=== PATIENT | male | born 1935 | race Caucasian/White ===

== ENCOUNTER 2017-02-25 14:01 | Inpatient (IN) | payer BC, MEDICARE ==
[~2017-02-25] VITALS: Ht 188 cm; Wt 115.0 kg
[~2017-02-25 14:01] MED LIST: ATOR40TA49 PO; DOCU1CAP39 PO; FE G325T PO; FLOR250C PO; LORTA5 PO; METO50TA11 PO; NYST100024 TOP; POLY119S PO; PRAD75CA PO; PREV30CA36 PO; SENN187 PO; TERA10CA3; THIA50CA PO; TOLT4 PO; TOPI100 PO; VENL75 PO; VESI5TAB PO; VITA100018 PO
[2017-02-25 14:06] VITALS: BP 151/81; PULSE 70; RESP 20; TEMP 97.4; O2SAT 97
[2017-02-25] MEDS ORDERED: PIPERACIL-TAZO 3.375 GM PREMIX 50 ML IV ONE (14:30)
[2017-02-25] MEDS ORDERED: ATOR10TA15 PO (14:44)
[2017-02-25] MEDS ORDERED: FLUO40CA PO (14:44)
[2017-02-25] MEDS ORDERED: TOPI1TAB36 PO (14:44)
[2017-02-25] MEDS ORDERED: METO50TA11 PO (14:44)
[2017-02-25] MEDS ORDERED: BUPR150T3 PO (14:44)
[2017-02-25] MEDS ORDERED: MIRA50TA PO (14:44)
[2017-02-25] MEDS ORDERED: VITA100T54 PO (14:44)
[2017-02-25] MEDS ORDERED: CHOL1CAP8 PO (14:44)
[2017-02-25] MEDS ORDERED: PRAD75CA PO (14:44)
[2017-02-25] MEDS ORDERED: VANCOMYCIN INJ 1,000 MG in SODIUM CHLOR 0.9% 250 ML INJ 250 ML IV ONE (14:45)
[2017-02-25 14:57] VITALS: BP 149/84; PULSE 66; RESP 20; TEMP 97.8; O2SAT 95
[2017-02-25] MEDS ORDERED: SENNOSIDES 8.6 MG TAB PO PRN (15:00)
[2017-02-25] MEDS ORDERED: SODIUM CHLORIDE 0.9% FLUSH 10 ML FLUSH IV FLUSH PRN (15:00)
[2017-02-25] MEDS ORDERED: BISACODYL 10 MG SUPP RECTAL PRN (15:00)
[2017-02-25] MEDS ORDERED: MAGNESIUM HYDROXIDE SUSP 30 ML CUP PO PRN (15:00)
[2017-02-25] MEDS ORDERED: LACTULOSE SYRUP 20 GM/30 ML CUP PO PRN (15:00)
[2017-02-25] MEDS ORDERED: NALOXONE HCL 0.4 MG/ML AMP IV PRN (15:00)
--- NOTE | 2017-02-25 15:26 | HHI.HP ---
[facility] Primary [facility] Physician Jina Lozada MD Admission Diagnosis left foot osteomyelitis Diagnoses: Chief Complaint: non healing wound Left foot Travel History International Travel<30 Days: No Contact w/Intl Traveler <30 Da: No Traveled to Known Affected Are: No History of Present Illness Written by Sara Sesay, acting as scribe for Dr. Espinoza on 02/25/17 at 15 :18. 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 Patient presents to the ER reports he has had a open wound on the plantar aspect of his left foot since April 2016. Patient has been seen at a wound clinic in [facility] and [facility]. Patient felt that the wound had improved then seemed to reopen about 1 month ago. Patient lives partially in [place] and partially in [place]. Patient returned to [place] from [place] this past Friday. Patient went to [facility] today and was sent to the ER for possible osteomyelitis. Patient reports moderate sharp pain located plantar aspect left foot which is worse with weight bearing. Pain better with rest. No N/V/D/C, chset pain, shortness of breath, dizziness, fevers or chills. 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[facility], sleep apnea stopped no longer uses CPAP, GERD, BPH, hyperlipidemia Past Surgical History Bilateral knee replaced, bilateral shoulder orthoscopic surgery, repair of foot fracture with hardware placement, back surgery for stenosis 2000, appendectomy Reported Medications Vitamin D3 (Cholecalciferol) 400 Unit Cap 400 Units PO DAILY Vitamin B-1 (Thiamine HCl) 100 Mg Tab 100 Mg PO DAILY Myrbetriq (Mirabegron) 50 Mg Tab 50 Mg PO HS Topiramate 50 Mg Tab 100 Mg PO BID Pradaxa (Dabigatran) 75 Mg Cap 75 Mg PO BID Bupropion HCl ER 24 HR (Bupropion HCl) 150 Mg Tab 150 Mg PO DAILY Fluoxetine (Fluoxetine HCl) 40 Mg Cap 40 Cap PO DAILY Atorvastatin (Atorvastatin Calcium) 10 Mg Tab 10 Mg PO HS Metoprolol Succinate ER 24 HR (Metoprolol Succinate) 50 Mg Tab 50 Mg PO DAILY Allergies: Coded Allergies: Sulfa (Verified Allergy, Severe, Rash, 02/25/17) Active Ordered Medications Current Medications Medications (Trade) Dose Ordered Sig/Zoë Route Start Time Stop Time Status Last Admin Vancomycin HCl 1000 mg/Sodium Chloride 250 ml @ 250 mls/hr ONCE ONCE IV 02/25/17 14:45 02/25/17 15:44 (NS 1000 ml Inj) 1,000 ml @ 75 mls/hr [id number] IV 02/25/17 14:49 UNV (NS Flush) 2 ml UNSCH PRN IV FLUSH 02/25/17 15:00 UNV (NS Flush) 2 ml BID IV FLUSH 02/25/17 21:00 UNV (Narcan Inj) 0.4 mg UNSCH PRN IV 02/25/17 15:00 UNV (Milk Of Magnesia Liq) 30 ml Q12H PRN PO 02/25/17 15:00 UNV (Senokot) 17.2 mg Q12H PRN PO 02/25/17 15:00 UNV (Dulcolax Supp) 10 mg DAILY PRN RECTAL 02/25/17 15:00 UNV (Lactulose Liq) 30 ml DAILY PRN PO 02/25/17 15:00 UNV (Lipitor) 10 mg HS PO 02/25/17 21:00 UNV (PROzac) 40 mg DAILY PO 02/26/17 09:00 UNV (Toprol Xl) 50 mg DAILY PO 02/26/17 09:00 UNV (Vitamin B1) 100 mg DAILY PO 02/26/17 09:00 UNV (Topamax) 100 mg BID PO 02/25/17 21:00 UNV Non-Formulary Medication 50 mg HS PO 02/25/17 21:00 UNV Family History Mother CHF, first cardiac problem in her late 40's/early 50's Father secondary to lung CA secondary to tobacco use Brother secondary to cancer of the liver age 76 Social History Lives in both [place] and [place] Tobacco use: quit smoking at age 40 started smoking at age 16- at the most he smoked was 4 packs a day ETOH use: about 2-3 drinks per night- has skipped night without complications Illicit drug use: denies Physical Exam Vital Signs Vital Signs Date Time Temp Pulse Resp B/P Pulse Ox O2 Delivery O2 Flow Rate FiO2 02/25/17 14:06 97.4 70 20 151/81 97 Physical Exam GENERAL: This is a well-nourished, well-developed patient, in no apparent distress. SKIN: No rashes, ecchymoses or lesions. Cool and dry. non draining open wound plantar surface left foot HEAD: Atraumatic. Normocephalic. No temporal or scalp tenderness. EYES: Pupils equal round and reactive. Extraocular motions intact. No scleral icterus. No injection or drainage. CARDIOVASCULAR: Regular rate and rhythm without murmurs, gallops, or rubs. Posterior tibial pulse +2, absent pedal pulse bilaterally RESPIRATORY: Clear to auscultation. Breath sounds equal bilaterally. No wheezes , rales, or rhonchi. GASTROINTESTINAL: Abdomen soft, non-tender, nondistended. No guarding. MUSCULOSKELETAL: Extremities without clubbing, cyanosis, or edema. No joint tenderness, effusion, or edema noted. No calf tenderness. Negative Homans sign bilaterally. NEUROLOGICAL: Awake and alert. No focal deficits noted. Motor and sensory grossly within normal limits. Five out of 5 muscle strength in all muscle groups. Normal speech. 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 Patient presents to the ER reports he has had a open wound on the plantar aspect of his left foot since April 2016. Patient has been seen at a wound clinic in [facility] and [facility]. Patient felt that the wound had improved then seemed to reopen about 1 month ago. Patient lives partially in [place] and partially in [place]. Patient returned to [place] from [place] this past Friday. Patient went to [facility] today and was sent to the ER for possible osteomyelitis. Patient reports moderate sharp pain located plantar aspect left foot which is worse with weight bearing. Pain better with rest. Abscess with possible osteomyelitis left foot Consult ID Consult Podiatry CBC, BMP, C- reactive protein, and mag pending Zosyn and Vancomycin ordered in ER WBC Spect ceretec pending Wound culture pending AFib hx hold Pradaxa possible procedure Continue Metoprolol Other stable chronic medical conditions include HTN and hyperlipidemia continue home medications. DVT prophylaxis with SCDs Full Code Physician Certification 2 Midnight Certification Type: Admission for Inpatient Services Order for Inpatient Services The services are ordered in accordance with Medicare regulations or non- Medicare payer requirements, as applicable. In the case of services not specified as inpatient-only, they are appropriately provided as inpatient services in accordance with the 2-midnight benchmark. Estimated LOS (days): 3 days is the estimated time the patient will need to remain in the hospital, assuming treatment plan goals are met and no additional complications. Post-Hospital Plan: Not yet determined Notes: This note was transcribed by scribjodi [Sara Sesay]. I, Dr. Jair Espinoza personally performed the history, physical exam, and medical decision making; and confirmed the accuracy of the information in the transcribed note. Authenticated by Dr. Jair Espinoza on 02/25/17 at 23:57. Sara Sesay Feb 25, 2017 15:25 Jair Espinoza MD Feb 25, 2017 23:57
--- NOTE | 2017-02-25 15:35 | PD ---
HPI Chief Complaint: Skin Problem Time Seen by Provider: 15:31 Travel History International Travel<30 days: No Contact w/Intl Traveler<30days: No Traveled to known affect area: No History of Present Illness HPI 81-year-old male that presents to the ED for evaluation of possible osteomyelitis. Patient was seen by a border machine operator Dr. Reed today and was sent here by their for evaluation of possible as to malaise to the left foot. Patient complains of having this one since July and was taken care of by wound care at [facility] and he seemed to get better but he came back and she went to see her border machine operator today who did a evaluation and she recommended that he comes here for antibiotics. Patient denies any history of diabetes or immunosuppression. No other injuries reported. No fevers chills or sweats. He does have chronic neuropathy. Allergies to sulfa. No other medical issues. Minimal pain 3 out of 10. No other wounds reported. PFSH Past Medical History Hx Anticoagulant Therapy: Yes Arthritis: Yes (KNEES) Asthma: No Atrial Fibrillation: Yes Autoimmune Disease: No Blood Disorders: No Anxiety: Yes Depression: No Heart Rhythm Problems: No Cancer: No Cardiac Catheterization: Yes Cardiovascular Problems: Yes High Cholesterol: Yes Chest Pain: Yes Congestive Heart Failure: No COPD: No Diminished Hearing: No Endocrine: No Gastrointestinal Disorders: Yes GERD: No Glaucoma: No Genitourinary: No Hepatitis: No Hiatal Hernia: No Hypertension: Yes Immune Disorder: No Musculoskeletal: Yes Neurologic: No Psychiatric: Yes Reproductive: No Respiratory: Yes Myocardial Infarction: No Sleep Apnea: Yes Ulcer: No Influenza Vaccination: Yes Past Surgical History Abdominal Surgery: Yes (APPENDECTOMY) AICD: No Appendectomy: Yes Arteriovenous Shunt: No Cardiac Surgery: No Cholecystectomy: No Ear Surgery: No Endocrine Surgery: No Eye Surgery: No Genitourinary Surgery: No Insulin Pump: No Joint Replacement: Yes (KUMAR. KNEES) Oral Surgery: Yes (DENTAL IMPLANTS) Pacemaker: No Thoracic Surgery: No Family History Family Hypercholesterolemia: Yes Social History Alcohol Use: Yes (2-3 DRINKS LIQUOR DAILY ) Tobacco Use: No Substance Use: No Allergies-Medications (Allergen,Severity, Reaction): Coded Allergies: Sulfa (Verified Allergy, Severe, Rash, 02/25/17) Reported Meds & Prescriptions Reported Meds & Active Scripts Active Reported Vitamin D3 (Cholecalciferol) 400 Unit Cap 400 Units PO DAILY Vitamin B-1 (Thiamine HCl) 100 Mg Tab 100 Mg PO DAILY Myrbetriq (Mirabegron) 50 Mg Tab 50 Mg PO HS Topiramate 50 Mg Tab 100 Mg PO BID Pradaxa (Dabigatran) 75 Mg Cap 75 Mg PO BID Bupropion HCl ER 24 HR (Bupropion HCl) 150 Mg Tab 150 Mg PO DAILY Fluoxetine (Fluoxetine HCl) 40 Mg Cap 40 Cap PO DAILY Atorvastatin (Atorvastatin Calcium) 10 Mg Tab 10 Mg PO HS Metoprolol Succinate ER 24 HR (Metoprolol Succinate) 50 Mg Tab 50 Mg PO DAILY Review of Systems Except as stated in HPI: all other systems reviewed are Neg Physical Exam Narrative GENERAL: SKIN: Warm and dry. HEAD: Atraumatic. Normocephalic. EYES: Pupils equal and round. No scleral icterus. No injection or drainage. ENT: No nasal bleeding or discharge. Mucous membranes pink and moist. Tongue is midline. No uvula deviation. NECK: Trachea midline. No JVD. CARDIOVASCULAR: Regular rate and rhythm. No murmurs, S3, S4. RESPIRATORY: No accessory muscle use. Clear to auscultation. Breath sounds equal bilaterally. GASTROINTESTINAL: Abdomen soft, non-tender, nondistended. Hepatic and splenic margins not palpable. MUSCULOSKELETAL: Extremities without clubbing, cyanosis, or edema. No obvious deformities. Full range of motion of the upper and lower extremities bilaterally. 2+ pulses bilaterally. Patient has an open wound on the plantar aspect of the left foot which is about 1 cm in diameter. Some purulence noted. Some erythema and swelling noted. Slightly tender to touch. NEUROLOGICAL: Awake and alert. No obvious cranial nerve deficits. Motor grossly within normal limits. Five out of 5 muscle strength in the arms and legs. Normal speech. PSYCHIATRIC: Appropriate mood and affect; insight and judgment normal. Data Data Last Documented VS Vital Signs Date Time Temp Pulse Resp B/P Pulse Ox O2 Delivery O2 Flow Rate FiO2 02/25/17 14:06 97.4 70 20 151/81 97 Orders Complete Blood Count With Diff (02/25/17 14:21) Basic Metabolic Panel (Bmp) (02/25/17 14:21) C-Reactive Protein (Crp) (02/25/17 14:21) Magnesium (Mg) (02/25/17 14:21) Iv Access Insert/Monitor (02/25/17 14:21) Piperacil-Tazo 3.375 Gm Premix (Zosyn 3. (02/25/17 14:30) Wbc Spect Ceretec (02/25/17 ) Wound Culture And Gram Stain (02/25/17 14:39) Blood Culture (02/25/17 14:39) Vancomycin Inj (Vancomycin Inj) (02/25/17 14:45) Admit To Inpatient (02/25/17 ) Vital Signs (Adult) Q4H (02/25/17 14:49) Activity Oob With Assistance (02/25/17 14:49) Intake + Output MARC.QSHIFT (02/25/17 14:49) Diet Npo (02/25/17 Dinner) Sodium Chlor 0.9% 1000 Ml Inj (Ns 1000 M (02/25/17 14:49) Sodium Chloride 0.9% Flush (Ns Flush) (02/25/17 15:00) Sodium Chloride 0.9% Flush (Ns Flush) (02/25/17 21:00) Pt Request For Service (02/25/17 14:49) Case Management Consult (02/25/17 14:49) Scd Bilateral/Knee High MARC.BID (02/25/17 14:49) Naloxone Inj (Narcan Inj) (02/25/17 15:00) Magnesium Hydroxide Liq (Milk Of Magnesi (02/25/17 15:00) Sennosides (Senokot) (02/25/17 15:00) Bisacodyl Supp (Dulcolax Supp) (02/25/17 15:00) Lactulose Liq (Lactulose Liq) (02/25/17 15:00) Inpatient Certification (02/25/17 ) Atorvastatin (Lipitor) (02/25/17 21:00) Fluoxetine (Prozac) (02/26/17 09:00) Metoprolol Succinate Er (Toprol Xl) (02/26/17 09:00) Thiamine (Vit B1) (Vitamin B1) (02/26/17 09:00) Topiramate (Topamax) (02/25/17 21:00) (Nf) Mirabegron (Myrbetriq) (02/25/17 21:00) Consult Podiatry (02/25/17 ) Consult Infectious Disease (02/25/17 ) Admit Order (Ed Use Only) (02/25/17 15:03) MDM Medical Decision Making Medical Screen Exam Complete: Yes Emergency Medical Condition: Yes Medical Record Reviewed: Yes Differential Diagnosis wound infection versus osteomyelitis versus cellulitis Narrative Course 81-year-old male that presents to the ED for evaluation of possible osteomyelitis. Patient was properly examined and was found to have signs and symptoms consistent with appears to be without infection. Possible osteomyelitis. Labs and imaging ordered. Patient was sent here by Dr. Garvey on for evaluation of this an admission for a WBC scan as well as IV antibiotics. Case was discussed with Dr. Nolasco who is furnace mason for Dr Xavier who agrees to admit to medicine, IV vancomycin and consult ID. Cultures taken from wound and blood. Patient was started on vancomycin. Case was discussed with Dr. Espinoza who agrees to admission. Diagnosis Primary Impression: Osteomyelitis Qualified Code: M86.072 - Acute hematogenous osteomyelitis of left foot Admitting Information Admitting Physician Requests: Admit Christian Jacob Feb 25, 2017 15:35
[2017-02-25 16:05] LABS: AUTOMATED NEUTROPHIL # 2.9 TH/MM3 (1.8-7.7); BASOPHIL % 0.5 % (0.0-2.0); EOSINOPHIL # 0.3 TH/MM3 (0-0.4); EOSINOPHIL % 5.2 % (0.0-4.0); HEMATOCRIT 40.6 % (39.0-51.0); HEMO FLAGS DIFF FINAL; LYMPH % 22.3 % (9.0-44.0); LYMPHOCYTE # 1.1 TH/MM3 (1.0-4.8); MEAN CELL VOLUME 88.3 FL (80.0-100.0); MEAN CORPUSCULAR HEMOGLOBIN 30.2 PG (27.0-34.0); MEAN CORPUSCULAR HGB CONC 34.2 % (32.0-36.0); MONO % 13.1 % (0.0-8.0); NEUT % 58.9 % (16.0-70.0); PLATELET COUNT 155 TH/MM3 (150-450); RED CELL DISTRIBUTION WIDTH 15.9 % (11.6-17.2)
[2017-02-25 16:19] LABS: BICARBONATE 24.1 MEQ/L (21.0-32.0); MAGNESIUM 2.2 MG/DL (1.5-2.5); POTASSIUM 3.8 MEQ/L (3.5-5.1)
[2017-02-25] MEDS: SODIUM CHLOR 0.9% 1000 ML INJ 1,000 ML IV SCH (16:39)
[2017-02-25 16:45] VITALS: BP 139/76; PULSE 64; RESP 18; O2SAT 96
[2017-02-25] MEDS ORDERED: Vancomycin Consult Pharmacy 1 EA OTHER SCH (18:15)
[2017-02-25 20:28] VITALS: BP 168/68; PULSE 68; RESP 18; TEMP 97.8; O2SAT 95
[2017-02-25] MEDS ORDERED: PT:MYRBETRIQ 50 MG PO SCH (21:00)
[2017-02-25] MEDS: SODIUM CHLORIDE 0.9% FLUSH 10 ML FLUSH IV FLUSH SCH (21:00)
[2017-02-25] MEDS ORDERED: NON-FORMULARY DRUG (Mirabegron (Myrbetriq) 50 MG) PO SCH (21:00)
[2017-02-25] MEDS: TOPIRAMATE 100 MG TAB PO SCH (22:05)
[2017-02-25] MEDS: ATORVASTATIN 10 MG TAB PO SCH (22:05)
[2017-02-25] MEDS: PIPERACIL-TAZO 4.5 GM PREMIX 100 ML IV SCH (22:59)
[2017-02-25 23:50] VITALS: BP 152/82; PULSE 71; RESP 18; TEMP 97.7; O2SAT 95
[2017-02-26] MEDS: SODIUM CHLOR 0.9% 1000 ML INJ 1,000 ML IV SCH ×2 (04:36→17:48)
[2017-02-26] MEDS: PIPERACIL-TAZO 4.5 GM PREMIX 100 ML IV SCH ×2 (05:58→14:58)
[2017-02-26 08:00] VITALS: BP 142/81; PULSE 71; RESP 17; TEMP 97.5; O2SAT 94
--- NOTE | 2017-02-26 08:20 | MB ---
cc: LEESA DESAI MD, SONA D. DPM DATE OF CONSULTATION: 02/26/2017 1937 REASON FOR CONSULTATION Left foot cellulitis infection. HISTORY OF PRESENT ILLNESS The patient is a 81-year-old male who was seen by Dr. Xavier on 02/25/2014 at the [facility]. Presented with new onset redness, swelling and probing to the deep subcu tissues on the left foot. He returned to [place] recently and presented with symptoms. Denies any nausea, vomiting, fever, diarrhea, chills. REVIEW OF SYSTEMS Six point review of systems per HPI. PAST MEDICAL HISTORY 1. HTN. 2. Hyperlipidemia. 3. Atrial fibrillation. 4. Sleep apnea. 5. GERD. 6. BPH. PAST SURGICAL HISTORY 1. Bilateral knee replacements. 2. Bilateral shoulder surgery. 3. Left foot ORIF. 4. Back surgery 2000. 5. Appendectomy. MEDICATION Reported medications: 1. Vitamin D3. 2. B1. 3. Myrbetriq. 4. Topiramate. 5. Pradaxa. 6. Bupropion. 7. Fluoxetine. 8. Atorvastatin. 9. Metoprolol. FAMILY HISTORY Noncontributory. SOCIAL H[place]ORY [place] Past history of tobacco. ETOH: Two to three drinks per night. Illicit drugs: Denies all. PHYSICAL EXAMINATION Left foot without pain or tenderness. There is decrease in erythema and swelling to the left foot. There is no active drainage. Protective sensation grossly intact. No crepitus. Full range of motion. No pain on palpation. LABORATORY DATA WBC 5.0, RBC of 4.6, H&H 13.9 and 40.6, respectively. CRP 0.77. He is currently pending bone scan on the left foot. ASSESSMENT/PLAN 1. Left foot diabetic foot infection. 2. Continue local wound care, offloading with a cam boot. Plan for this patient is to get a bone scan to determine whether he has deeper bone infection. The patient has reiterated that he plans on no surgical intervention in [place] as he will be planning to leave [place] on 03/02/2017 to go to [place] for the summer. If the bone scan is negative, then plan to discharge him on oral antibiotics. Thank you for the kind consult. PALMIRA Juares /7:46 AM /7:55 AM
[2017-02-26] MEDS: SODIUM CHLORIDE 0.9% FLUSH 10 ML FLUSH IV FLUSH SCH ×2 (09:00→20:06)
[2017-02-26] MEDS: TOPIRAMATE 100 MG TAB PO SCH ×2 (09:48→20:04)
[2017-02-26] MEDS: FLUoxetine HCL 20 MG CAP PO SCH (09:48)
[2017-02-26] MEDS: METOPROLOL SUCCINATE 50 MG EXTENDED RELEASE TAB PO SCH (09:48)
[2017-02-26] MEDS: THIAMINE HCL 100 MG TAB PO SCH (09:48)
--- NOTE | 2017-02-26 10:56 | PD.CONS ---
History of Present Illness Service Infectious disease Consult Requested By Dr Sharri Espinoza Reason for Consult Evaluate patient for possible osteo-of the left foot Primary Care Physician Jina Lozada MD Diagnoses: History of Present Illness Patient seen and examined. Records reviewed. Patient is a 81-year-old male, presents to the hospital at the advice of his multifocal button inspector for further evaluation of his left foot. Patient apparently has had a sore over his first metatarsal on the left foot on the plantar aspect. He has callus there and he has been going to a wound care center in [place]. He has been worked up, and there was no evidence of infection, and has not been on any antibiotics. Over the last month he started having an open wound, and he started going to [facility]. He has been seen 2 times, and there was apparently no evidence of infection. Over the last 2 days his developed an area of redness on the medial aspect of that left foot. He was seen by the multifocal button inspector, and from there he was told to go to the hospital for further evaluation and treatment. Patient has not had any change in the color of the drainage. His always been clear. He has a little bit of pain when he puts weight on it. Denies any fever or chills or sweats. He has not had any respiratory complaint, GI or urinary complaints. Patient has not been on any oral antibiotics for his left foot. Since admission he has not been febrile. His WBC is normal. Patient just came from having a bone scan done. He is on IV Vanco and Zosyn. Infectious disease consultation has been requested to evaluate for possible osteomyelitis of the left foot. Review of Systems Constitutional: DENIES: Fever, Chills Eyes: DENIES: Eye pain Ears, nose, mouth, throat: DENIES: Nasal discharge, Oral lesions, Throat pain, Ear Pain, Sinus Pain Respiratory: DENIES: Cough, Sputum production, Shortness of breath Cardiovascular: DENIES: Chest pain, Palpitations, Syncope Gastrointestinal: DENIES: Abdominal pain, Diarrhea, Nausea, Vomiting, Difficulty Swallowing Genitourinary: DENIES: Dysuria Musculoskeletal: COMPLAINS OF: Joint pain, Back pain, DENIES: Joint Swelling Integumentary: DENIES: Rash Neurologic: DENIES: Headache Psychiatric: DENIES: Hallucinations Past Family Social History Allergies: Coded Allergies: Sulfa (Verified Allergy, Severe, Rash, 02/25/17) Past Medical History Hypertension Hyperlipidemia Atrial fibrillation Sleep apnea stopped no longer uses CPAP GERD BPH Hyperlipidemia Past Surgical History Bilateral knee replaced Bilateral shoulder arthoscopic surgery Repair of foot fracture with hardware placement Back surgery for stenosis 2001 Appendectomy Active Ordered Medications Lipitor Dulcolax Prozac Lactulose MOM Lopressor Zosyn Senokot Thiamine Detrol Topamax Vancomycin Family History Mother CHF, first cardiac problem in her late 40's/early 50's Father secondary to lung CA secondary to tobacco use Brother secondary to cancer of the liver age 76 Social History Lives in both [place] and [place] Tobacco use: quit smoking at age 40 started smoking at age 16- at the most he smoked was 4 packs a day ETOH use: about 2-3 drinks per night- has skipped night without complications Illicit drug use: denies Physical Exam Vital Signs Vital Signs Date Time Temp Pulse Resp B/P Pulse Ox O2 Delivery O2 Flow Rate FiO2 02/26/17 08:00 97.5 71 17 142/81 94 02/25/17 23:50 97.7 71 18 152/82 95 02/25/17 20:28 97.8 68 18 168/68 95 02/25/17 16:45 64 18 139/76 96 Room Air 02/25/17 14:57 97.8 66 20 149/84 95 02/25/17 14:06 97.4 70 20 151/81 97 Physical Exam GENERAL: Patient is a well-nourished, well-developed male, awake and alert, not in respiratory distress. SKIN: Warm and dry. No generalized rash, no ecchymoses and no evidence of embolic lesions. HEAD: Atraumatic. Normocephalic. No temporal wasting, or tenderness. EYES: [place] conjunctiva. No petechia or hemorrhage. Pupils equal, round and reactive to light. Extraocular movements full and intact. No scleral icterus. No injection or drainage. EARS, NOSE AND THROAT: Nose without bleeding or purulent nasal discharge. No sinus tenderness. Mucous membranes pink and moist. No oral lesions noted. No exudate. No oral thrush. NECK: Trachea midline. Supple and not tender, no meningeal signs CARDIOVASCULAR: Regular rate and rhythm. No murmurs, rubs or gallops heard RESPIRATORY: Clear to auscultation. Breath sounds equal bilaterally. No rales , wheezing or rhonchi ABDOMEN: Soft, non-tender, nondistended. Bowel sounds present and normoactive. No guarding. No rebound. No organomegaly. EXTREMITIES: No clubbing, cyanosis, or edema. Has scars both knees C/W surgical history. No calf tenderness. Well perfused and warm. L foot - there is a pea sized plantar ulcer over his first MT, clean base, no purulence, no odor. There is improving area of erythema on medial aspect of that foot. He has chronic skin changes on both legs worse on R than on L NEUROLOGICAL: Awake and alert. Cranial nerves grossly intact. Motor grossly within normal limits. PSYCHIATRIC: Normal affect, calm and cooperative. LINE: No evidence of infection Laboratory Laboratory Tests Test 02/25/17 15:00 White Blood Count 5.0 Red Blood Count 4.60 Hemoglobin 13.9 Hematocrit 40.6 Mean Corpuscular Volume 88.3 Mean Corpuscular Hemoglobin 30.2 Mean Corpuscular Hemoglobin 34.2 Concent Red Cell Distribution Width 15.9 Platelet Count 155 Mean Platelet Volume 8.1 Neutrophils (%) (Auto) 58.9 Lymphocytes (%) (Auto) 22.3 Monocytes (%) (Auto) 13.1 Eosinophils (%) (Auto) 5.2 Basophils (%) (Auto) 0.5 Neutrophils # (Auto) 2.9 Lymphocytes # (Auto) 1.1 Monocytes # (Auto) 0.7 Eosinophils # (Auto) 0.3 Basophils # (Auto) 0.0 CBC Comment DIFF FINAL Differential Comment Sodium Level 137 Potassium Level 3.8 Chloride Level 105 Carbon Dioxide Level 24.1 Anion Gap 8 Blood Urea Nitrogen 13 Creatinine 1.20 Estimat Glomerular Filtration 58 Rate Random Glucose 94 Calcium Level 9.0 Magnesium Level 2.2 C-Reactive Protein 0.77 Date/Time Procedure Status Source Growth 02/25/17 15:05 Aerobic Blood Culture Received Blood Peripheral Pending 02/25/17 15:05 Anaerobic Blood Culture Received Blood Peripheral Pending 02/25/17 14:45 Gram Stain - Final Resulted Wound Foot 02/25/17 14:45 Wound Culture Resulted Wound Foot Pending Result Diagram: 02/25/17 1500 02/25/17 1500 Imaging Assessment and Plan Assessment and Plan IMPRESSION Cellulitis L foot, has chronic plantar ulcer over first MTP - improving Chronic ulcer, ?osteo RECOMMENDATION Follow C/S Patient is schedule to go back to [place] Mar 02 - His L foot is improving, and one option would be to Rx with oral Abx and complete Rx of his cellulitis - have him reevaluated by his multifocal button inspector in [place], possibly do bone biopsy ( after he is off Abx for at least 1-2 weeks) for C/S if scan (+) and have Abx Rx for osteo based on results of C/S Monitor progress Change Zosyn to Levaquin Continue Vanco for now Adjust Abx based on C/S Follow results of bone scan I will follow along with you Thank you for this consultation Discussed Condition With Explained plan to patient and D/W Agata Sigala MD Feb 26, 2017 10:56
[2017-02-26 12:00] VITALS: BP 154/69; PULSE 63; RESP 16; TEMP 95.6; O2SAT 95
[2017-02-26] MEDS: VANCOMYCIN INJ 1,750 MG in SODIUM CHLORID 0.9% 500 ML INJ 500 ML IV SCH (13:05)
--- NOTE | 2017-02-26 13:49 | RADRPT ---
EXAM DATE/TIME: 02/25/2017 17:56 [place] COMPARISON: No previous studies available for comparison. INDICATIONS : Left plantar foot wound for eight months. DOSE: 21 mCi Tc99m Ceretec labeled white blood cells IV SPECT IMAGIN hrs, 20 hrs IMAGNG: SPECT/CT imaging with fusion was performed. RADIATION DOSE: 5.42 CTDIvol (mGy) ; Multiple Day Study MEDICAL HISTORY : Hypertension. Atrial fibrillation. SURGICAL HISTORY : Appendectomy. Total knee replacement, left. Total knee replacement, right. Left foot surgery. ENCOUNTER: Subsequent ACUITY: 7 - 11 months PAIN SCALE: 0/10 LOCATION: Left foot. TECHNIQUE: Following the in vitro labeling of autologous white cells and reinjection, whole body scan was perfor med at the specified times. SPECT imaging was performed at the specified time in sagittal, axial and coronal planes. Attenuation correction was performed with the computed tomography and both the atten uation correction and non-attenuation corrected data sets were reviewed. FINDINGS: There is intense radiotracer uptake scattered in the left leg most intense about the wound on the jennifer ntar axis aspect of the foot sitting just beneath the head of the first metatarsal. No other uptake is identified. The uptake is confined to the soft tissues. CONCLUSION: Uptake in the soft tissues outside of ulcer. This does not involve the bone. Jaylan Fuchs MD FACR on February 26, 2017 at 13:40 Board Certified Radiologist. This report was verified electronically.
[2017-02-26] MEDS: COLLAGENASE OINT 30 GM TUBE TOPICAL SCH (14:58)
[2017-02-26 16:00] VITALS: BP 157/81; PULSE 66; RESP 17; TEMP 96.3; O2SAT 97
[2017-02-26] MEDS: LEVOFLOXACIN 750 MG TAB PO SCH (17:47)
--- NOTE | 2017-02-26 19:10 | HHI.PR ---
Subjective Remarks Patient seen today around noon. Denies any chest pain or shortness of breath. Reports pain is under control. Positive bowel movement. Objective Vital Signs Date Time Temp Pulse Resp B/P Pulse Ox O2 Delivery O2 Flow Rate FiO2 02/26/17 16:00 96.3 66 17 157/81 97 02/26/17 12:00 95.6 63 16 154/69 95 02/26/17 08:00 97.5 71 17 142/81 94 02/25/17 23:50 97.7 71 18 152/82 95 02/25/17 20:28 97.8 68 18 168/68 95 I/O 02/25/17 02/25/17 02/25/17 02/26/17 02/26/17 02/26/17 07:00 15:00 23:00 07:00 15:00 23:00 Intake Total 480 ml 598 ml 960 ml 1044 ml Output Total 1000 ml Balance 480 ml -402 ml 960 ml 1044 ml Intake Oral 480 ml 960 ml IV Total 598 ml 1044 ml Output Urine Total 1000 ml # Voids 2 2 Result Diagram: 02/25/17 1500 02/25/17 1500 Objective Remarks GENERAL: patient sitting up in bed. Appears comfortable. Alert and oriented 3. SKIN: Warm and dry. HEAD: Normocephalic. EYES: No scleral icterus. No injection or drainage. NECK: Supple, trachea midline. No JVD or lymphadenopathy. CARDIOVASCULAR: Regular rate and rhythm without murmurs, gallops, or rubs. RESPIRATORY: Breath sounds equal bilaterally. No accessory muscle use. GASTROINTESTINAL: Abdomen soft, non-tender, nondistended. MUSCULOSKELETAL: No cyanosis, or edema. BACK: Nontender without obvious deformity. No CVA tenderness. A/P Assessment and Plan ====02/26/17======= //Left foot cellulitis. White blood cell scan with absence of osteomyelitis. Discussed with infectious disease. Infectious disease recommends following up cultures. 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 Patient presents to the ER reports he has had a open wound on the plantar aspect of his left foot since April 2016. Patient has been seen at a wound clinic in [facility] and [facility]. Patient felt that the wound had improved then seemed to reopen about 1 month ago. Patient lives partially in [place] and partially in [place]. Patient returned to [place] from [place] this past Friday. Patient went to [facility] today and was sent to the ER for possible osteomyelitis. Patient reports moderate sharp pain located plantar aspect left foot which is worse with weight bearing. Pain better with rest. Abscess with possible osteomyelitis left foot Consult ID Consult Podiatry CBC, BMP, C- reactive protein, and mag pending Zosyn and Vancomycin ordered in ER WBC Spect ceretec pending Wound culture still pending AFib hx hold Pradaxa possible procedure Continue Metoprolol Other stable chronic medical conditions include HTN and hyperlipidemia continue home medications. DVT prophylaxis with SCDs Discharge Planning cleared for discharge by podiatry.discharge when cleared by infectious disease. Jair Espinoza MD Feb 26, 2017 19:10
[2017-02-26] MEDS ORDERED: ACETAMINOPHEN 325 MG TAB PO PRN (19:15)
[2017-02-26] MEDS: ATORVASTATIN 10 MG TAB PO SCH (20:04)
[2017-02-26 20:30] VITALS: BP 145/69; PULSE 70; RESP 18; TEMP 95.2; O2SAT 98
[2017-02-26] MEDS ORDERED: TOLTERODINE TARTRATE 4 MG CAP LA PO SCH (21:00)
[2017-02-26 23:46] VITALS: BP 154/78; PULSE 68; RESP 18; TEMP 96.9; O2SAT 98
[2017-02-27 08:00] VITALS: BP 141/80; PULSE 69; RESP 16; TEMP 98.5; O2SAT 96
[2017-02-27] MEDS: VANCOMYCIN INJ 1,750 MG in SODIUM CHLORID 0.9% 500 ML INJ 500 ML IV SCH (09:22)
[2017-02-27] MEDS: FLUoxetine HCL 20 MG CAP PO SCH (09:22)
[2017-02-27] MEDS: THIAMINE HCL 100 MG TAB PO SCH (09:22)
[2017-02-27] MEDS: LEVOFLOXACIN 750 MG TAB PO SCH (09:22)
[2017-02-27] MEDS: METOPROLOL SUCCINATE 50 MG EXTENDED RELEASE TAB PO SCH (09:22)
[2017-02-27] MEDS: TOPIRAMATE 100 MG TAB PO SCH (09:22)
[2017-02-27] MEDS: COLLAGENASE OINT 30 GM TUBE TOPICAL SCH (09:25)
[2017-02-27] MEDS: SODIUM CHLORIDE 0.9% FLUSH 10 ML FLUSH IV FLUSH SCH (09:26)
[2017-02-27] MEDS ORDERED: LEVA750T9 PO (10:20)
[2017-02-27] MEDS ORDERED: CLIN1CAP6 PO (10:20)
[2017-02-27 12:00] VITALS: BP 127/60; PULSE 63; RESP 16; TEMP 97.6; O2SAT 96
--- NOTE | 2017-02-27 23:09 | HHI.DS ---
Discharge Summary Admission Date Feb 25, 2017 at 15:05 Discharge Date: Feb 27, 2017 Admitting Diagnosis left foot osteomyelitis (1) Foot ulcer ICD Code: L97.509 Procedures no invasive procedures. Brief History - From Admission Written by Sara Sesay, acting as scribe for Dr. Espinoza on 02/25/17 at 15 :18. 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 Patient presents to the ER reports he has had a open wound on the plantar aspect of his left foot since April 2016. Patient has been seen at a wound clinic in [facility] and [facility]. Patient felt that the wound had improved then seemed to reopen about 1 month ago. Patient lives partially in [place] and partially in [place]. Patient returned to [place] from [place] this past Friday. Patient went to [facility] today and was sent to the ER for possible osteomyelitis. Patient reports moderate sharp pain located plantar aspect left foot which is worse with weight bearing. Pain better with rest. No N/V/D/C, chset pain, shortness of breath, dizziness, fevers or chills. CBC/BMP: 02/25/17 1500 02/27/17 0615 Significant Findings Laboratory Tests Test 02/25/17 02/27/17 15:00 06:15 Monocytes (%) (Auto) 13.1 % (0.0-8.0) Eosinophils (%) (Auto) 5.2 % (0.0-4.0) Estimat Glomerular Filtration 58 ML/MIN (>89) 55 ML/MIN (>89) Rate C-Reactive Protein 0.77 MG/DL (0.00-0.30) Imaging Last Impressions Tumor Localization 02/25/17 0000 Signed Impressions: Service Date/Time: Saturday, February 25, 2017 17:56 - CONCLUSION: Uptake in the soft tissues outside of ulcer. This does not involve the bone. Jaylan Fuchs MD FACR PE at Discharge GENERAL: patient sitting up in bed. Appears comfortable. Alert and oriented 3. SKIN: Warm and dry. HEAD: Normocephalic. EYES: No scleral icterus. No injection or drainage. NECK: Supple, trachea midline. No JVD or lymphadenopathy. CARDIOVASCULAR: Regular rate and rhythm without murmurs, gallops, or rubs. RESPIRATORY: Breath sounds equal bilaterally. No accessory muscle use. GASTROINTESTINAL: Abdomen soft, non-tender, nondistended. MUSCULOSKELETAL: No cyanosis, or edema. BACK: Nontender without obvious deformity. No CVA tenderness. Hospital Course ====02/26/17======= //Left foot cellulitis. White blood cell scan with absence of osteomyelitis. Discussed with infectious disease. Infectious disease recommends following up cultures. 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 Patient presents to the ER reports he has had a open wound on the plantar aspect of his left foot since April 2016. Patient has been seen at a wound clinic in [facility] and [facility]. Patient felt that the wound had improved then seemed to reopen about 1 month ago. Patient lives partially in [place] and partially in [place]. Patient returned to [place] from [place] this past Friday. Patient went to [facility] today and was sent to the ER for possible osteomyelitis. Patient reports moderate sharp pain located plantar aspect left foot which is worse with weight bearing. Pain better with rest. Abscess with possible osteomyelitis left foot Consult ID Consult Podiatry CBC, BMP, C- reactive protein, and mag pending Zosyn and Vancomycin ordered in ER WBC Spect ceretec pending Wound culture still pending AFib hx hold Pradaxa possible procedure Continue Metoprolol Other stable chronic medical conditions include HTN and hyperlipidemia continue home medications. DVT prophylaxis with SCDs Discharge Planning cleared for discharge by podiatry.discharge when cleared by infectious disease. Pt Condition on Discharge: Good Discharge Disposition: Discharge Home Discharge Time: > 30 minutes Discharge Instructions DIET: Follow Instructions for: Heart Healthy Diet Activities you can perform: Partial Weight Bearing Follow up Referrals: PCP Follow-up - 1 Week Podiatry - 1 Week with Lyndsey Nolasco DPM New Medications: Clindamycin (Clindamycin) 300 Mg Cap 300 MG PO Q8H Infection Days 12 Ref 0 CAP Levofloxacin (Levaquin) 750 Mg Tablet 750 MG PO DAILY infection Days 12 TAB Continued Medications: Atorvastatin (Atorvastatin) 10 Mg Tab 10 MG PO HS Cholesterol Management #30 Ref 0 TAB Bupropion HCl ER 24 HR (Bupropion HCl ER 24 HR) 150 Mg Tab 150 MG PO DAILY Control Depression Ref 0 TAB Cholecalciferol (Vitamin D3) 400 Unit Cap 400 UNITS PO DAILY Nutritional Supplement #1 Ref 0 BOTTLE Dabigatran (Pradaxa) 75 Mg Cap 75 MG PO BID Blood Clot Prevention #60 Ref 0 CAP Fluoxetine (Fluoxetine) 40 Mg Cap 40 CAP PO DAILY #30 Ref 0 CAP Metoprolol Succinate ER 24 HR (Metoprolol Succinate ER 24 HR) 50 Mg Tab 50 MG PO DAILY #30 Ref 0 TAB Mirabegron (Myrbetriq) 50 Mg Tab 50 MG PO HS Urinary Symptom Managemen #30 Ref 0 TAB Thiamine (Vitamin B-1) 100 Mg Tab 100 MG PO DAILY Nutritional Supplement Ref 0 TAB Topiramate (Topiramate) 50 Mg Tab 100 MG PO BID Control Seizures #60 Ref 0 TAB Jair Espinoza MD Feb 27, 2017 23:09
[2017-02-28] MEDS ORDERED: PHARMACY ORDERED LAB ONE (01:45)
== END 2017-02-27 14:54 | disposition home or self-care (01) | DRG 540 ==
LOC: NEPC 14:01 → NEDA 15:05 → N07B 17:11
PROVIDERS: ADMIT Internal Medicine; ATTEND Internal Medicine
DX: M86.9 Osteomyelitis, unspecified (principal); L03.116 Cellulitis of left lower limb; E11.621 Type 2 diabetes mellitus with foot ulcer; I48.91 Unspecified atrial fibrillation; G62.9 Polyneuropathy, unspecified; L97.529 Non-pressure chronic ulcer of other part of left foot with unspecified severity; E78.5 Hyperlipidemia, unspecified; I10 Essential (primary) hypertension; F41.9 Anxiety disorder, unspecified; G47.30 Sleep apnea, unspecified; K21.9 Gastro-esophageal reflux disease without esophagitis; N40.0 Benign prostatic hyperplasia without lower urinary tract symptoms; Z87.891 Personal history of nicotine dependence; Z88.2 Allergy status to sulfonamides; Z96.653 Presence of artificial knee joint, bilateral; M19.90 Unspecified osteoarthritis, unspecified site
CPT/HCPCS: 78807; 78999; 80048; 82565; 83735; 85025; 86140; 87040; 87070; 87077; 87186; A9569; J2543; J3370; J7030; J7040; J7050; L2114

== ENCOUNTER 2018-07-30 20:29 | Inpatient (IN) ==
--- NOTE | 2018-07-30 21:09 | ED ---
HPI General Chief complaint: Extremity Injury, Lower Stated complaint: Transfer from [facility] Fall Injury Time Seen by Provider: 07/30/18 20:52 History of Present Illness HPI narrative: This is an 82-year-old male with history of atrial fibrillation on Eliquis, hypertension, hyperlipidemia, who was transferred here from [facility] in [place] for evaluation of a left leg injury. The patient reports that he fell yesterday at the [place] airport and injured his left leg. He then flew back to [place]. He was seen at [facility] today where x- rays of the left leg were obtained revealing comminuted periprosthetic fracture involving the mid and distal left tibial diaphysis and incomplete distal diaphysis of left fibula fracture. There is also an acute minimally displaced fracture at the medial aspect of the base of the fourth proximal phalanx with intra-articular involvement. The patient was placed in a long-leg splint and transferred here, accepted by hospitalist Dr. Rangel for orthopedic evaluation. The patient is complaining of mild pain and is requesting Tylenol. He denies any other injuries. Last meal 4 hours ago, last drink water 1.5 hours ago. No other complaints. 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 (Acute) Neuropathy (Acute) Spinal stenosis (Acute) Surgical History Surgical History H/O foot surgery (Acute) H/O knee surgery (Acute) H/O laminectomy (Acute) H/O rotator cuff surgery (Acute) Social History Social History Substance History: No History of Abuse Second Hand Smoke Exposure: No Smoking Status: Never smoker How Often Do You Have a Drink Containing Alcohol: 2 to 4 times a month Recent Travel in [facility] within the Last 8 Weeks: No Recent Out of Country Travel within the Last 8 Weeks: Yes Exam Narrative Exam Narrative: GENERAL: Well-developed well-nourished male in no acute distress SKIN: Warm and dry. HEAD: Atraumatic. Normocephalic. EYES: Pupils equal and round. No scleral icterus. No injection or drainage. ENT: No nasal bleeding or discharge. Mucous membranes pink and moist. NECK: Trachea midline. No JVD. CARDIOVASCULAR: Regular rate and rhythm. No murmur appreciated. RESPIRATORY: No accessory muscle use. Clear to auscultation. Breath sounds equal bilaterally. GASTROINTESTINAL: Abdomen soft, non-tender, nondistended. Hepatic and splenic margins not palpable. MUSCULOSKELETAL: No obvious deformities. Left long leg splint is in place. Toes are visible. There is a Band-Aid on the left fourth toe. NEUROLOGICAL: Awake and alert. No obvious cranial nerve deficits. Motor grossly within normal limits. Normal speech. Course Initial Documented Vital Signs Temperature 98 F 07/30/18 20:52 Pulse Rate 85 07/30/18 20:52 Respiratory Rate 18 07/30/18 20:52 Blood Pressure 195/91 H 07/30/18 20:52 Pulse Oximetry 98 07/30/18 20:52 Last Documented Vital Signs Temperature 98 F 07/30/18 20:52 Pulse Rate 85 07/30/18 20:52 Respiratory Rate 18 07/30/18 20:52 Blood Pressure 195/91 H 07/30/18 20:52 Pulse Oximetry 98 07/30/18 20:52 Medical Decision Making MDM Narrative Medical decision making narrative: X-ray imaging is suggestive of left tibia fracture as well as a potentially old fibula fracture. It was suggestive of a left fourth toe fracture as well however he has no tenderness to palpation of left fourth toe. I discussed with Facundo Childress PA-C on-call for Dr. Abrams, and they will consult, npo after midnight. Medical Screen Exam Complete: Yes Emergency Medical Condition: Yes Differential Diagnosis Differential Diagnosis: Left tibia-fibula fracture, dislocation, contusion Lab Data Result diagrams: 07/30/18 21:35 07/30/18 21:35 Lab Results 07/30/18 07/30/18 Range/Units 21:35 21:35 WBC 5.7 (4.0-11.0) th/mm3 RBC 3.94 L (4.50-5.90) mil/mm3 Hgb 13.0 (13.0-17.0) gm/dL Hct 38.6 L (39.0-51.0) % MCV 98.0 (80.0-100.0) fL MCH 33.0 (27.0-34.0) pg MCHC 33.7 (32.0-36.0) % RDW 14.0 (11.6-17.2) % Plt Count 140 L (150-450) th/mm3 MPV 7.3 (7.0-11.0) fL Neut % (Auto) 68.0 (16.0-70.0) % Lymph % (Auto) 14.8 (9.0-44.0) % [place] % (Auto) 13.3 H (0.0-8.0) % Eos % (Auto) 3.6 (0.0-4.0) % Baso % (Auto) 0.3 (0.0-2.0) % Neut # (Auto) 3.9 (1.8-7.7) th/mm3 Lymph # (Auto) 0.9 L (1.0-4.8) th/mm3 [place] # (Auto) 0.8 (0.0-0.9) th/mm3 Eos # (Auto) 0.2 (0.0-0.4) th/mm3 Baso # (Auto) 0.0 (0.0-0.2) th/mm3 WBC Differential . Differential Comment Auto diff final PT 10.7 (9.8-11.6) sec INR 1.1 Ratio APTT 37.1 H (23.4-31.7) sec Imaging Data Radiologist's impression: Chest X-Ray 07/30/18 21:02 CONCLUSION: 1. Minimal airspace disease at the left lung base, presumably atelectasis. Cannot exclude developing pneumonia in the appropriate clinical setting. Discharge Plan Discharge Disposition Patient Disposition: ED Admit(ED Internal Use Only) Discharge Condition Condition: Stable Discharge Order Discharge Orders: ED Use Only Admit Order (Routine); Ordered 07/30/18 Ordered By: Robinson Marcum Discharge Details Diagnosis: Closed fracture of left lower leg Physicians Team ED Provider: Rita Kennedy ED Midlevel Provider: Robinson Marcum Rxs /Orders / Referrals /Forms Prescriptions: No Action Eliquis RF: 0 Status ED Status: With Doctor
--- NOTE | 2018-07-30 21:24 | XR ---
EXAM DATE: 07/30/2018 9:21 PM EST AGE/SEX: 82 years / Male INDICATIONS: Cough. CLINICAL DATA: This is the patient's initial encounter. Patient reports that signs and symptoms have been present for 1 day and indicates a pain score of 0/10. MEDICAL/SURGICAL HISTORY: . Hypertension. Atrial fibrillation. . Appendectomy. Total knee repl acement, left. Total knee replacement, right. Left foot surgery. COMPARISON: No prior exams available for comparison. FINDINGS: Calcified granuloma at the right lung base. Minimal airspace disease at the left lung base. Cardiomed iastinal contours are within normal limits given portable technique. Bony thorax is grossly intact. CONCLUSION: 1. Minimal airspace disease at the left lung base, presumably atelectasis. Cannot exclude developing pneumonia in the appropriate clinical setting. Electronically signed by: David Min MD Board Certified Radiologist 07/30/2018 9:23 PM EST
[2018-07-30] MEDS ORDERED: Acetaminophen 325 MG Tablet PO ONE (21:41)
[2018-07-30 21:45] LABS: Baso % (Auto) 0.3 % (0.0-2.0); Eos # (Auto) 0.2 th/mm3 (0.0-0.4); Eos % (Auto) 3.6 % (0.0-4.0); Hematocrit 38.6 % (39.0-51.0); Lymph # (Auto) 0.9 th/mm3 (1.0-4.8); Lymph % (Auto) 14.8 % (9.0-44.0); Mean Corpuscular HGB Conc 33.7 % (32.0-36.0); Mean Platelet Volume 7.3 fL (7.0-11.0); Mono # (Auto) 0.8 th/mm3 (0.0-0.9); Mono % (Auto) 13.3 % (0.0-8.0); Neut # (Auto) 3.9 th/mm3 (1.8-7.7); Platelet Count 140 th/mm3 (150-450); Red Blood Count 3.94 mil/mm3 (4.50-5.90); White Blood Count 5.7 th/mm3 (4.0-11.0)
[2018-07-30 21:55] LABS: Activated Partial Thrombo Time 37.1 sec (23.4-31.7); INR 1.1 Ratio; Prothrombin Time 10.7 sec (9.8-11.6)
[2018-07-30 22:04] LABS: Alanine Aminotransferase 26 U/L (12-78)
[2018-07-30 22:06] LABS: Alkaline Phosphatase 71 U/L (45-117)
[2018-07-30 22:13] LABS: Albumin 3.4 g/dL (3.4-5.0); Anion Gap 5 meq/L (5-15); Aspartate Aminotransferase 35 U/L (15-37); Blood Urea Nitrogen 14 mg/dL (7-18); Calcium 8.6 mg/dL (8.5-10.1); Chloride 103 meq/L (98-107); Glomerular Filtration Rate 66 mL/min (>89); Glucose,Random 97 mg/dL (74-106); Sodium 132 meq/L (136-145)
[2018-07-30 22:15] LABS: Potassium 4.9 meq/L (3.5-5.1)
[2018-07-31] MEDS ORDERED: Bisacodyl 10 MG Supp RECTAL PRN (06:49)
[2018-07-31] MEDS ORDERED: Acetaminophen 325 MG Tablet PO PRN ×2 (06:49→06:52)
[2018-07-31] MEDS ORDERED: Morphine Sulfate Inj 2 MG/ML Vial IV.PUSH PRN (06:52)
[2018-07-31] MEDS ORDERED: HYDROmorphone PF Inj 1 MG/ML Ampul IV.PUSH PRN (06:52)
[2018-07-31] MEDS ORDERED: Naloxone Inj 0.4 MG/ML Vial IV.PUSH PRN (06:52)
[2018-07-31] MEDS ORDERED: HYDROmorphone PF Inj 0.5 MG/0.5 ML Syringe IV.PUSH PRN (07:10)
--- NOTE | 2018-07-31 07:40 | P.CONOP ---
[facility] Orthopedics Consult Note - [facility] Consult date: 07/31/18 Chief complaint: Left Tibia Fracture Narrative: Mr. Olvera is an 82-year-old male. He has a history of atrial fibrillation and is on Eliquis. He also has hypertension and high cholesterol. He was at the [facility] yesterday when he fell. He injured his left leg. He was able to get on the next flight home by using a wheelchair. He arrived to [place] and went to [facility]. X-rays revealed a comminuted left tibial shaft fracture below a revision total knee arthroplasty. He complains of left leg pain. Pain is severe and intense with movement or weightbearing. He was placed into a long-leg splint. He was transferred to [place] for definitive treatment. He is currently awake and alert. He lives in [place] and [place]. His knee replacements were done in [facility]. Review of Systems Patient denies fevers, chills, weight loss, headache, visual changes, hearing loss, chest pain, palpitations, shortness of breath, nausea, vomiting, no urinary changes, diarrhea, bowel changes, neck pain, back pain, skin rashes, weakness of extremities, easy bleeding, enlarged lymph nodes, numbness of extremities, anxiety, or depression. He complains of left leg pain Patient's social history, past medical history, and family history were reviewed on chart and with patient. 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 Neuropathy Spinal stenosis - Surgical History Surgical History: Surgical History (Last Reviewed 07/31/18 @ 07:36 by Vish Modi MD) H/O foot surgery H/O knee surgery H/O laminectomy H/O rotator cuff surgery - Family History Family History: Family History (Last Updated 07/31/18 @ 07:37 by Vish Modi MD) Other Family history non-contributory - Social History I have reviewed the patient's Social History: Yes - Tobacco History Second Hand Smoke Exposure: No Tobacco Use In Past 30 Days: No Smoking Status: Former smoker Tobacco Type: Cigarettes - Alcohol History How Often Do You Have a Drink Containing Alcohol: 2 to 4 times a month - Substance Use History Substance History: No History of Abuse - Travel History Recent Travel in the USA Within the Last 8 Weeks: No Recent Travel Out of the Country Within the Last 8 Weeks: Yes - Immunization History Tetanus Immunization: <5 Years Hx Influenza Vaccine This Season: Yes Medications and Allergies Active Medications: Active Medications Acetaminophen (Tylenol) 650 mg PO Q4H PRN PRN Reason: Temp > 100.4 Hydrocodone Bitart/Acetaminophen (Beulah 5/325) 1 tab PO Q4H PRN PRN Reason: pain 3-6 Hydrocodone Bitart/Acetaminophen (Beulah 7.5/325) 1 tab PO Q4H PRN PRN Reason: pain 7-10 Al Hydroxide/Mg Hydroxide (Milk Of Magnesia Liq) 30 ml PO Q12H PRN PRN Reason: Mild Constipation Bisacodyl (Dulcolax Supp) 10 mg RECTAL DAILY PRN PRN Reason: SEVERE CONSITIPATION Hydromorphone HCl (Dilaudid Pf Inj) 0.5 mg IV.PUSH Q3H PRN PRN Reason: BREAKTHROUGH PAIN Lactulose (Lactulose Liq) 30 ml PO DAILY PRN PRN Reason: SEVERE CONSITIPATION Metoprolol Succinate (Toprol Xl) 50 mg PO DAILY ANNAMARIA Naloxone HCl (Narcan Inj) 0.4 mg IV.PUSH UNSCH PRN PRN Reason: SEE LABEL COMMENTS Ondansetron HCl (Zofran Inj) 4 mg IV.PUSH Q6H PRN PRN Reason: NAUSEA OR VOMITING Ondansetron HCl (Zofran Inj) 4 mg IV.PUSH Q6H PRN PRN Reason: NAUSEA OR VOMITING Sennosides (Senokot) 17.2 mg PO Q12H PRN PRN Reason: Moderate Constipation Sodium Chloride (Ns Flush) 2 ml IV.FLUSH BID ANNAMARIA Sodium Chloride (Ns Flush) 2 ml IV.FLUSH PRN PRN PRN Reason: FLUSH AFTER USING IV ACCESS Sodium Chloride (Ns Flush) 2 ml IV.FLUSH BID ANNAMARIA Sodium Chloride (Ns Flush) 2 ml IV.FLUSH PRN PRN PRN Reason: FLUSH AFTER USING IV ACCESS Allergies Allergy/AdvReac Type Severity Reaction Status Date / Time Sulfa (Sulfonamide Allergy Severe Rash Verified 07/30/18 20:58 Antibiotics) Home Medications Medication Instructions Recorded Confirmed Type apixaban [Eliquis] 2.5 mg PO BID 07/30/18 07/31/18 History atorvastatin 10 mg PO DAILY 07/30/18 07/30/18 History bupropion HCl 300 mg PO QAM 07/30/18 07/30/18 History fluoxetine 40 mg PO DAILY 07/30/18 07/30/18 History metoprolol succinate 50 mg PO DAILY 07/30/18 07/30/18 History mirabegron [Myrbetriq] 50 mg PO DAILY 07/30/18 07/30/18 History ranitidine HCl [Zantac Maximum 150 mg PO DAILY 07/30/18 07/30/18 History Strength] topiramate 100 mg PO HS 07/30/18 07/30/18 History Exam Vital signs: Vital Signs 07/30/18 20:52 07/30/18 20:58 07/30/18 22:35 Temperature 98 F Pulse Rate 85 80 Respiratory Rate 18 18 18 Blood Pressure 195/91 H 145/70 H Pulse Oximetry 98 99 07/31/18 00:00 07/31/18 04:00 Temperature 97.6 F 97.3 F L Pulse Rate 75 77 Respiratory Rate 19 Blood Pressure 132/70 133/69 Pulse Oximetry 96 93 L Intake & Output 07/30/18 07/31/18 07/31/18 18:59 06:59 18:59 Intake Total 0 / 0 Output Total 250 / 250 Balance -250 / -250 Weight 119.8 kg Intake: Oral 0 / 0 Output: Urine 250 / 250 Other: Date of Last Bowel Movement 07/30/18 Weight On Admission 119.7 kg Narrative: Maxx is a pleasant 82-year-old male. His is at bedside. General: Awake and alert. No acute distress. Appears well-developed well- nourished Head: Normocephalic, atraumatic pupils are equal Neck: Soft, nontender, trachea midline Abdomen: Soft, nondistended Examination of right arm reveals no pain or deformity with shoulder, elbow, or wrist motion. Skin is intact. Radial pulse is palpable. Normal capillary refill in fingers. Sensation is intact in radial, ulnar, and median nerve distributions. Business Banking Officer strength is +5. No lymphadenopathy noted. Examination of left arm reveals no pain or deformity with shoulder, elbow, or wrist motion. Skin is intact. Radial pulse is palpable. Normal capillary refill in fingers. Sensation is intact in radial, ulnar, and median nerve distributions. Business Banking Officer strength is +5. No lymphadenopathy noted. Examination of left lower extremity reveals no tenderness around his hip or knee. He is tender to palpation along the mid and distal tibia. He has moderate swelling of the calf and ankle. He has minimal pain with passive range of motion of his toes. Skin is intact, but he has significant bruising. Sensation is intact in left foot. Dorsalis pedis pulse is palpable. Normal capillary refill and feet. Thigh and calf compartments are soft. No lymphadenopathy noted. Examination of right lower extremity reveals no pain or deformity with hip, knee , or ankle motion. Skin is intact. Sensation is intact in right foot. Dorsalis pedis pulse is palpable. Normal capillary refill and feet. Thigh and calf compartments are soft. No lymphadenopathy noted. +5 strength of ankle dorsiflexion and plantarflexion. Results - Labs Result Diagrams: 07/30/18 21:35 07/30/18 21:35 Labs: Laboratory Results - last 24 hr 07/30/18 07/30/18 07/30/18 21:35 21:35 21:35 WBC 5.7 RBC 3.94 L Hgb 13.0 Hct 38.6 L MCV 98.0 MCH 33.0 MCHC 33.7 RDW 14.0 Plt Count 140 L MPV 7.3 Neut % (Auto) 68.0 Lymph % (Auto) 14.8 Mccracken % (Auto) 13.3 H Eos % (Auto) 3.6 Baso % (Auto) 0.3 Neut # (Auto) 3.9 Lymph # (Auto) 0.9 L Mccracken # (Auto) 0.8 Eos # (Auto) 0.2 Baso # (Auto) 0.0 WBC Differential . Differential Comment Auto diff final PT 10.7 INR 1.1 APTT 37.1 H Sodium 132 L Potassium 4.9 Chloride 103 Carbon Dioxide 24.0 Anion Gap 5 BUN 14 Creatinine 1.08 Estimated GFR 66 L Random Glucose 97 Calcium 8.6 Total Bilirubin 0.6 AST 35 ALT 26 Alkaline Phosphatase 71 Total Protein 7.0 Albumin 3.4 Blood Type Blood Type Recheck Antibody Screen 07/30/18 23:54 WBC RBC Hgb Hct MCV MCH MCHC RDW Plt Count MPV Neut % (Auto) Lymph % (Auto) Mccracken % (Auto) Eos % (Auto) Baso % (Auto) Neut # (Auto) Lymph # (Auto) Mccracken # (Auto) Eos # (Auto) Baso # (Auto) WBC Differential Differential Comment PT INR APTT Sodium Potassium Chloride Carbon Dioxide Anion Gap BUN Creatinine Estimated GFR Random Glucose Calcium Total Bilirubin AST ALT Alkaline Phosphatase Total Protein Albumin Blood Type A Positive Blood Type Recheck Required Antibody Screen Negative - Diagnostic results Imaging: Impressions Chest X-Ray 07/30/18 21:02 CONCLUSION: 1. Minimal airspace disease at the left lung base, presumably atelectasis. Cannot exclude developing pneumonia in the appropriate clinical setting. Assessment and Plan - Assessment and Plan Maxx has a comminuted left tibia shaft fracture below a revision total knee arthroplasty. He has moderate swelling of his calf and ankle. Treatment options were discussed with patient. At this point he has too much swelling to proceed with open reduction internal fixation. I discussed with him possible external fixation. Overall the fracture is very well aligned. I will place him into a well-padded long-leg splint. He will need to keep his foot elevated at all times. He will need to remain strictly nonweightbearing. He may resume his Eliquis. He will need to be discharged to a [facility] facility. He may eventually need open reduction internal fixation of his tibia once the swelling has improved. He should follow-up with me in clinic next week for reevaluation of his soft tissue as well as x-rays of his tibia. He is in agreement with this plan. All questions were answered. SCDs, DARIAN mckee, Eliquis Strict nonweightbearing, elevate left foot [employer] for new left leg splint Follow-up with Dr. Modi in 1 weeks Case management for SNF A mid-level provider in my office (nurse practitioner or physician inventory control assistant) may see this patient on follow-up visits and continue to implement the objectives of this plan including: Starting or adjusting medications, injections , cast application, orthotics, brace application, physical therapy, radiological studies (including x-ray, MRI, CT, ultrasound, bone scan), vascular studies, neurologic studies, specialist consultation, and proceeding with surgical management, as appropriate.
[2018-07-31] MEDS: FLUoxetine 20 MG Capsule PO SCH (11:59)
[2018-07-31] MEDS: buPROPion 150 MG 12 HR Tablet PO SCH ×2 (11:59→22:23)
[2018-07-31] MEDS: Famotidine 20 MG Tablet PO SCH ×2 (12:00→22:23)
[2018-07-31] MEDS ORDERED: Aluminum/Magnesium/Simethacone Susp 30 ML UDC PO PRN (12:02)
[2018-07-31] MEDS ORDERED: Temazepam 15 MG Capsule PO PRN (12:02)
--- NOTE | 2018-07-31 12:02 | P.HPIM ---
History of Present Illness Service: [facility] Primary Care Physician: Jina Sandy MD Chief Complaint: INJURY TO LEFT LOWER EXTREMITY History of Present Illness: Patient is an 82-year-old gentleman with a history of atrial fibrillation on chronic Eliquis, hypertension, hyperlipidemia, who was transferred here from [facility] for evaluation of left leg injury. The patient reported that he fell yesterday at the [place] airport and injured his left leg. He then flew back to [place]. He was seen at [facility] yesterday where x-rays of the left leg were obtained revealing comminuted periprostatic fracture involving the mid and distal left tibial diaphysis and incomplete distal diaphysis of left fibula fracture. Patient was also noted to have an acute minimally displaced fracture at the medial aspect of the base of the fourth proximal phalanx and intra-articular involvement. Patient was placed in a long-leg splint and transferred here. For orthopedic evaluation. Patient has been seen by orthopedic surgery. Who wants the patient to go to SNF and wait for swelling to come down. Patient therefore will be admitted will stay here is needed to 3 midnights and continue pain control with limited mobility and then will be reevaluated by orthopedic surgery next week for possible surgery in the future of the left lower extremity Of note patient has had history with bilateral total knee replacements needing them both removed and then antibiotic spacers and then bilateral total knees redone. Patient will be admitted for pain control and to work with physical therapy and occupational therapy and then will need to go to SNF if surgery is not indicated at this time yet Family history significant for mother with congestive heart failure at 84 and father with lung cancer at age 78 Inpatient Certification: I certify that the inpatient services were ordered in accordance with Medicare regulations governing the order. This includes certification that hospital inpatient services are reasonable and necessary and in the case of services not specified as inpatient-only under 42 CFR 419.22(n), that they are appropriately provided as inpatient services in accordance to with the 2-midnight benchmark under 43 CFR 412.3(e) Estimated Total Length of Stay (Days): 3 Plans for Post Hospital Care: Not yet determined Review of Systems All other systems reviewed negative except as stated in HPI [facility] - History History Provided By: Patient - Medical History Medical History: Medical History (Last Updated 07/31/18 @ 11:50 by Jaylan Rockwell DO) Afib HTN (hypertension) High cholesterol 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 Neuropathy Spinal stenosis - Surgical History Surgical History: Surgical History (Last Reviewed 07/31/18 @ 11:50 by Jaylan Rockwell DO) H/O foot surgery H/O knee surgery H/O laminectomy H/O rotator cuff surgery - Family History Family History: Family History (Last Updated 07/31/18 @ 11:51 by Jaylan Rockwell DO) Other Congestive heart failure Family history non-contributory Lung cancer - Social History I have reviewed the patient's Social History: Yes - Tobacco History Second Hand Smoke Exposure: No Tobacco Use In Past 30 Days: No Smoking Status: Former smoker Tobacco Type: Cigarettes - Alcohol History How Often Do You Have a Drink Containing Alcohol: 2 to 4 times a month - Substance Use History Substance History: No History of Abuse - Travel History History of Recent Travel: Yes Recent Travel in the USA Within the Last 8 Weeks: No Recent Travel Out of the Country Within the Last 8 Weeks: Yes - Immunization History Tetanus Immunization: <5 Years Hx Influenza Vaccine This Season: Yes Medications and Allergies Active Medications: Active Medications Acetaminophen (Tylenol) 650 mg PO Q4H PRN PRN Reason: Temp > 100.4 Hydrocodone Bitart/Acetaminophen (Hunt 5/325) 1 tab PO Q4H PRN PRN Reason: pain 3-6 Hydrocodone Bitart/Acetaminophen (Hunt 7.5/325) 1 tab PO Q4H PRN PRN Reason: pain 7-10 Last Admin: 07/31/18 07:37 Dose: 1 tab Al Hydroxide/Mg Hydroxide (Milk Of Yoni Liq) 30 ml PO Q12H PRN PRN Reason: Mild Constipation Apixaban (Eliquis) 2.5 mg PO BID ANNAMARIA Atorvastatin Calcium (Lipitor) 10 mg PO DAILY ANNAMARIA Bisacodyl (Dulcolax Supp) 10 mg RECTAL DAILY PRN PRN Reason: SEVERE CONSITIPATION Bupropion HCl (Wellbutrin Sr) 150 mg PO Q12HR ANNAMARIA Famotidine (Pepcid) 20 mg PO BID ANNAMARIA Fluoxetine HCl (Prozac) 40 mg PO DAILY ANNAMARIA Hydromorphone HCl (Dilaudid Pf Inj) 0.5 mg IV.PUSH Q3H PRN PRN Reason: BREAKTHROUGH PAIN Last Admin: 07/31/18 10:32 Dose: 0.5 mg Lactulose (Lactulose Liq) 30 ml PO DAILY PRN PRN Reason: SEVERE CONSITIPATION Metoprolol Succinate (Toprol Xl) 50 mg PO DAILY [facility] Last Admin: 07/31/18 09:45 Dose: 50 mg Naloxone HCl (Narcan Inj) 0.4 mg IV.PUSH UNSCH PRN PRN Reason: SEE LABEL COMMENTS Ondansetron HCl (Zofran Inj) 4 mg IV.PUSH Q6H PRN PRN Reason: NAUSEA OR VOMITING Sennosides (Senokot) 17.2 mg PO Q12H PRN PRN Reason: Moderate Constipation Sodium Chloride (Ns Flush) 2 ml IV.FLUSH BID [facility] Last Admin: 07/31/18 09:46 Dose: Not Given Sodium Chloride (Ns Flush) 2 ml IV.FLUSH PRN PRN PRN Reason: FLUSH AFTER USING IV ACCESS Tolterodine Tartrate (Detrol La) 4 mg PO DAILY [facility] Topiramate (Topamax) 100 mg PO [facility] Allergies Allergy/AdvReac Type Severity Reaction Status Date / Time Sulfa (Sulfonamide Allergy Severe Rash Verified 07/30/18 20:58 Antibiotics) Home Medications Medication Instructions Recorded Confirmed Type apixaban [Eliquis] 2.5 mg PO BID 07/30/18 07/31/18 History atorvastatin 10 mg PO DAILY 07/30/18 07/30/18 History bupropion HCl 300 mg PO QA 07/30/18 07/30/18 History fluoxetine 40 mg PO DAILY 07/30/18 07/30/18 History metoprolol succinate 50 mg PO DAILY 07/30/18 07/30/18 History mirabegron [Myrbetriq] 50 mg PO DAILY 07/30/18 07/30/18 History ranitidine HCl [Zantac Maximum 150 mg PO DAILY 07/30/18 07/30/18 History Strength] topiramate 100 mg PO HS 07/30/18 07/30/18 History Exam Vital signs: Vital Signs 07/30/18 20:52 07/30/18 20:58 07/30/18 22:35 Temperature 98 F Pulse Rate 85 80 Respiratory Rate 18 18 18 Blood Pressure 195/91 H 145/70 H Pulse Oximetry 98 99 07/31/18 00:00 07/31/18 04:00 07/31/18 08:00 Temperature 97.6 F 97.3 F L 98.8 F Pulse Rate 75 77 76 Respiratory Rate 19 19 16 Blood Pressure 132/70 133/69 128/60 Pulse Oximetry 96 93 L 92 L Intake & Output 07/30/18 07/31/18 07/31/18 18:59 06:59 18:59 Intake Total 0 / 0 Output Total 250 / 250 Balance -250 / -250 Weight 119.8 kg Intake: Oral 0 / 0 Output: Urine 250 / 250 Other: Date of Last Bowel Movement 07/30/18 Weight On Admission 119.7 kg Narrative: GENERAL: Awake alert and oriented x3 talkative and cooperative SKIN: Warm and dry. Has some swelling to the left lower extremity HEAD: Atraumatic. Normocephalic. EYES: Pupils equal and round. No scleral icterus. No injection or drainage. EOMI ENT: No nasal bleeding or discharge. Mucous membranes pink and moist. Tongue is midline NECK: Trachea midline. No JVD. Supple CARDIOVASCULAR: IRRegular rate and rhythm. S1-S2 no S3 or S4 RESPIRATORY: No accessory muscle use. Clear to auscultation. Breath sounds equal bilaterally. GASTROINTESTINAL: Abdomen soft, non-tender, nondistended. Hepatic and splenic margins not palpable. MUSCULOSKELETAL: Extremities without clubbing, cyanosis, or edema. No obvious deformities. Left lower extremity is in splint NEUROLOGICAL: Awake and alert. No obvious cranial nerve deficits. Motor grossly within normal limits. Five out of 5 muscle strength in the arms and legs. Normal speech. Left lower extremity is in splint with the swelling and some tenderness PSYCHIATRIC: Appropriate mood and affect; insight and judgment normal. Results - Labs CBC & Chem 7: 07/30/18 21:35 07/30/18 21:35 Labs: Short CBC 07/30/18 Range/Units 21:35 WBC 5.7 (4.0-11.0) th/mm3 Hgb 13.0 (13.0-17.0) gm/dL Hct 38.6 L (39.0-51.0) % Plt Count 140 L (150-450) th/mm3 BMP 07/30/18 21:35 Sodium 132 L Potassium 4.9 Chloride 103 Carbon Dioxide 24.0 BUN 14 Creatinine 1.08 Calcium 8.6 Liver Function 07/30/18 Range/Units 21:35 Total Bilirubin 0.6 (0.2-1.0) mg/dL AST 35 (15-37) U/L ALT 26 (12-78) U/L Alkaline Phosphatase 71 (45-117) U/L Albumin 3.4 (3.4-5.0) g/dL - Imaging Impressions Chest X-Ray 07/30/18 21:02 CONCLUSION: 1. Minimal airspace disease at the left lung base, presumably atelectasis. Cannot exclude developing pneumonia in the appropriate clinical setting. Caprini VTE Risk Assessment Caprini VTE Risk Assessment: Moderate/High Risk (score >= 2) Caprini Risk Assessment Model: Point Value = 1 Point Value = 2 Point Value = 3 Point Value = 5 Age 41-60 Minor surgery BMI > 25 kg/m2 Swollen legs Varicose veins or History of unexplained or recurrent spontaneous Oral contraceptives or hormone replacement Sepsis (< 1 month) Serious lung disease, including pneumonia (< 1 month) Abnormal pulmonary function Acute myocardial infarction Congestive heart failure (< 1 month) History of inflammatory bowel disease Medical patient at bed rest Age 61-74 Arthroscopic surgery Major open surgery (> 45 min) Laparoscopic surgery (> 45 min) Malignancy Confined to bed (> 72 hours) Immobilizing plaster cast Central venous access Age >= 75 History of VTE Family history of VTE Factor V Leiden Prothrombin [id number] Lupus anticoagulant Anticardiolipin antibodies Elevated serum homocysteine Heparin-induced thrombocytopenia Other congenital or acquired thrombophilia Stroke (< 1 month) Elective arthroplasty Hip, pelvis, or leg fracture Acute spinal cord injury (< 1 month) Prophylaxis Regimen: Total Risk Factor Score Risk Level Prophylaxis Regimen 0-1 Low Early ambulation 2 Moderate Order ONE of the following: *Sequential Compression Device (SCD) *Heparin 5000 units SQ BID 3-4 Higher Order ONE of the following medications: *Heparin 5000 units SQ TID *Enoxaparin/Lovenox 40 mg SQ daily (WT < 150 kg, CrCl > 30 mL/min) *Enoxaparin/Lovenox 30 mg SQ daily (WT < 150 kg, CrCl > 10-29 mL/min) *Enoxaparin/Lovenox 30 mg SQ BID (WT < 150 kg, CrCl > 30 mL/min) AND/OR *Sequential Compression Device (SCD) 5 or more Highest Order ONE of the following medications: *Heparin 5000 units SQ TID (Preferred with Epidurals) *Enoxaparin/Lovenox 40 mg SQ daily (WT < 150 kg, CrCl > 30 mL/min) *Enoxaparin/Lovenox 30 mg SQ daily (WT < 150 kg, CrCl > 10-29 mL/min) *Enoxaparin/Lovenox 30 mg SQ BID (WT < 150 kg, CrCl > 30 mL/min) AND *Sequential Compression Device (SCD) Assessment and Plan - Plan Closed fracture of left lower leg comminuted periprosthetic fracture involving the mid and distal left tibial diaphysis and incomplete distal diaphysis of left fibula fracture -Nonsurgical at this time per orthopedics -May need surgery in the future -Continue on splint and pain control -Has been seen by orthopedic surgery no surgery at this time will need SNF Atrial fibrillation continue on Eliquis continue on metoprolol Hypertension resume home medications continue on metoprolol Hyperlipidemia continue on statin continue on atorvastatin Chronic neuropathy continue on home medications continue on Topamax Depression anxiety continue on fluoxetine and bupropion History of bilateral knee infections removal of the bilateral total knees and antibiotic spacer placement and then reimplantation of bilateral total knees GI prophylaxis continue on ranitidine DVT prophylaxis continue on Eliquis Will need SNF placement after his 3 midnights and pain control Code Status: Full code Discussed Condition With: RN and patient and family Discharge Planning: Pending SNF placement and pain control since no surgery at this time and surgery in the future H&P: Quality - VTE Deep Vein Thrombosis/Pulmonary Embolism Present on Admission: No
[2018-07-31] MEDS: Tolterodine Tartrate LA 4 MG Capsule PO SCH (13:35)
[2018-07-31] MEDS: Senna/Docusate Sodium 8.6/50 MG Tablet PO PRN (13:40)
--- NOTE | 2018-07-31 14:18 | ECG ---
Date Performed: 07/30/2018 Time Performed: 23:51:34 PTAGE: 82 years EKG: Sinus rhythm WITH FIRST DEGREE AV BLOCK RIGHT BUNDLE BRANCH BLOCK, new compared to prior tracing ABNORMAL ECG PREVIOUS TRACING : 06/08/2007 06.46 DOCTOR: Michael Coy Interpretating Date/Time 07/31/2018 14:17:29
[2018-07-31] MEDS: Topiramate 100 MG Tablet PO SCH (22:24)
[2018-08-01 06:45] LABS: Baso % (Auto) 0.2 % (0.0-2.0); Eos # (Auto) 0.3 th/mm3 (0.0-0.4); Eos % (Auto) 4.8 % (0.0-4.0); Hematocrit 37.7 % (39.0-51.0); Hemoglobin 12.7 gm/dL (13.0-17.0); Lymph # (Auto) 0.9 th/mm3 (1.0-4.8); Lymph % (Auto) 16.9 % (9.0-44.0); Mean Corpuscular HGB Conc 33.7 % (32.0-36.0); Mean Corpuscular Hemoglobin 33.5 pg (27.0-34.0); Mean Corpuscular Volume 99.4 fL (80.0-100.0); Mean Platelet Volume 7.1 fL (7.0-11.0); Mono # (Auto) 0.8 th/mm3 (0.0-0.9); Mono % (Auto) 14.9 % (0.0-8.0); Neut # (Auto) 3.3 th/mm3 (1.8-7.7); Neut % (Auto) 63.2 % (16.0-70.0); Platelet Count 140 th/mm3 (150-450); Red Blood Count 3.79 mil/mm3 (4.50-5.90); Red Cell Distribution Width 14.2 % (11.6-17.2); White Blood Count 5.3 th/mm3 (4.0-11.0)
[2018-08-01 07:09] LABS: Albumin 3.2 g/dL (3.4-5.0); Anion Gap 5 meq/L (5-15); Aspartate Aminotransferase 19 U/L (15-37); Blood Urea Nitrogen 16 mg/dL (7-18); Calcium 8.5 mg/dL (8.5-10.1); Carbon Dioxide 27.3 meq/L (21.0-32.0); Chloride 104 meq/L (98-107); Glomerular Filtration Rate 56 mL/min (>89); Glucose,Random 98 mg/dL (74-106); Magnesium 2.1 mg/dL (1.5-2.5); Sodium 136 meq/L (136-145)
[2018-08-01 07:10] LABS: Alanine Aminotransferase 19 U/L (12-78); Cholesterol 140 mg/dL (120-200); Phosphorus 3.7 mg/dL (2.5-4.9); Triglycerides 140 mg/dL (42-150)
[2018-08-01 07:18] LABS: Alkaline Phosphatase 64 U/L (45-117); Chol/HDL Ratio 2.71 Ratio; Free T4 (Free Thyroxine) 0.96 ng/dL (0.76-1.46); HDL Cholesterol 51.5 mg/dL (40.0-60.0); LDL Cholesterol,Calculated 61 mg/dL (0-99); Total Protein 6.9 g/dL (6.4-8.2)
--- NOTE | 2018-08-01 08:54 | P.PNOP ---
Subjective Interval history: Non op treatment of left tibial shaft, comminuted fracture inferior to revision total knee components. Pt admits his pain is well controlled and the long leg splint is comfortable. Pt and both are interested going to inpatient rehab which I think would be appropriate Physical Exam Vital signs: Vital Signs 07/31/18 12:00 07/31/18 16:00 07/31/18 20:12 Temperature 98.3 F 97.7 F 98.6 F Pulse Rate 66 73 70 Respiratory Rate 16 20 18 Blood Pressure 107/54 L 108/51 L 140/65 Pulse Oximetry 95 94 L 95 07/31/18 23:46 08/01/18 03:40 Temperature 97.9 F 97.7 F Pulse Rate 72 73 Respiratory Rate 18 18 Blood Pressure 134/66 127/61 Pulse Oximetry 97 96 Intake & Output 07/31/18 08/01/18 08/01/18 18:59 06:59 18:59 Output Total 1125 / 1125 Balance -1125 / -1125 Output: Urine 1125 / 1125 Other: Date of Last Bowel Movement 07/30/18 Narrative: LLE: in long leg splint, goes about 4 inches past knee joint proximally, free motion of distal digits, good cap refill, able to perform SLR with no movement of knee joint, NVI Results - Labs CBC & Chem 7: 08/01/18 06:02 08/01/18 06:02 Laboratory Results - last 24 hr 08/01/18 08/01/18 06:02 06:02 WBC 5.3 RBC 3.79 L Hgb 12.7 L Hct 37.7 L MCV 99.4 MCH 33.5 MCHC 33.7 RDW 14.2 Plt Count 140 L MPV 7.1 Neut % (Auto) 63.2 Lymph % (Auto) 16.9 [place] % (Auto) 14.9 H Eos % (Auto) 4.8 H Baso % (Auto) 0.2 Neut # (Auto) 3.3 Lymph # (Auto) 0.9 L [place] # (Auto) 0.8 Eos # (Auto) 0.3 Baso # (Auto) 0.0 WBC Differential . Differential Comment Auto diff final Sodium 136 Potassium 4.0 D Chloride 104 Carbon Dioxide 27.3 Anion Gap 5 BUN 16 Creatinine 1.24 Estimated GFR 56 L Random Glucose 98 Calcium 8.5 Phosphorus 3.7 Magnesium 2.1 Total Bilirubin 0.4 AST 19 ALT 19 Alkaline Phosphatase 64 Total Protein 6.9 Albumin 3.2 L Triglycerides 140 Cholesterol 140 LDL Cholesterol, Calc 61 HDL Cholesterol 51.5 Cholesterol/HDL Ratio 2.71 TSH 2.100 Free T4 0.96 Assessment and Plan - Assessment and Plan Non op treatment of left tibial shaft, comminuted fracture inferior to revision total knee components. Dr Abrams SCDs, Stanton Acosta Strict nonweightbearing, elevate left foot Follow-up with Dr. Abrams in 1 weeks Case management for Rehab vs SNF, recommend inpatient rehab if possible d/t large size and medical comorbidities. Clear for discharge from an orthopedic standpoint.
[2018-08-01] MEDS: Famotidine 20 MG Tablet PO SCH ×2 (09:16→21:33)
[2018-08-01] MEDS: Tolterodine Tartrate LA 4 MG Capsule PO SCH (09:16)
[2018-08-01] MEDS: Senna/Docusate Sodium 8.6/50 MG Tablet PO PRN (09:16)
[2018-08-01] MEDS: Docusate Sodium 100 MG Capsule PO PRN (09:16)
[2018-08-01] MEDS: buPROPion 150 MG 12 HR Tablet PO SCH ×2 (09:16→21:32)
[2018-08-01] MEDS: FLUoxetine 20 MG Capsule PO SCH (09:16)
--- NOTE | 2018-08-01 11:43 | P.PNIM ---
Subjective Interval history: Chief Complaint: INJURY TO LEFT LOWER EXTREMITY History of Present Illness: Patient is an 82-year-old gentleman with a history of atrial fibrillation on chronic Eliquis, hypertension, hyperlipidemia, who was transferred here from [facility] for evaluation of left leg injury. The patient reported that he fell yesterday at the [place] airport and injured his left leg. He then flew back to [place]. He was seen at [facility] yesterday where x-rays of the left leg were obtained revealing comminuted periprostatic fracture involving the mid and distal left tibial diaphysis and incomplete distal diaphysis of left fibula fracture. Patient was also noted to have an acute minimally displaced fracture at the medial aspect of the base of the fourth proximal phalanx and intra-articular involvement. Patient was placed in a long-leg splint and transferred here. For orthopedic evaluation. Patient has been seen by orthopedic surgery. Who wants the patient to go to SNF and wait for swelling to come down. Patient therefore will be admitted will stay here is needed to 3 midnights and continue pain control with limited mobility and then will be reevaluated by orthopedic surgery next week for possible surgery in the future of the left lower extremity Of note patient has had history with bilateral total knee replacements needing them both removed and then antibiotic spacers and then bilateral total knees redone. Patient will be admitted for pain control and to work with physical therapy and occupational therapy and then will need to go to SNF if surgery is not indicated at this time yet Family history significant for mother with congestive heart failure at 84 and father with lung cancer at age 78 1-5 NEEDS TO WORK WITH PT AND OT WILL NEED CM FOR HELP WITH SAFE DISCHARGE WILL PROBABLY NEED SNF PAIN CONTROL WITH [facility]CO LIMITED ACTIVITY REGARDING LEFT LOWER EXTREMITY Physical Exam Vital signs: Vital Signs 07/31/18 12:00 07/31/18 16:00 07/31/18 20:12 Temperature 98.3 F 97.7 F 98.6 F Pulse Rate 66 73 70 Respiratory Rate 16 20 18 Blood Pressure 107/54 L 108/51 L 140/65 Pulse Oximetry 95 94 L 95 07/31/18 23:46 08/01/18 03:40 08/01/18 09:12 Temperature 97.9 F 97.7 F 97.2 F L Pulse Rate 72 73 71 Respiratory Rate 18 18 18 Blood Pressure 134/66 127/61 120/59 L Pulse Oximetry 97 96 95 Intake & Output 07/31/18 08/01/18 08/01/18 18:59 06:59 18:59 Output Total 1125 / 1125 Balance -1125 / -1125 Output: Urine 1125 / 1125 Other: Date of Last Bowel Movement 07/30/18 07/29/17 Narrative: GENERAL: Awake alert and oriented x3 talkative and cooperative SKIN: Warm and dry. Has some swelling to the left lower extremity HEAD: Atraumatic. Normocephalic. EYES: Pupils equal and round. No scleral icterus. No injection or drainage. EOMI ENT: No nasal bleeding or discharge. Mucous membranes pink and moist. Tongue is midline NECK: Trachea midline. No JVD. Supple CARDIOVASCULAR: IRRegular rate and rhythm. S1-S2 no S3 or S4 RESPIRATORY: No accessory muscle use. Clear to auscultation. Breath sounds equal bilaterally. GASTROINTESTINAL: Abdomen soft, non-tender, nondistended. Hepatic and splenic margins not palpable. MUSCULOSKELETAL: Extremities without clubbing, cyanosis, or edema. No obvious deformities. Left lower extremity is in splint NEUROLOGICAL: Awake and alert. No obvious cranial nerve deficits. Motor grossly within normal limits. Five out of 5 muscle strength in the arms and legs. Normal speech. Left lower extremity is in splint with the swelling and some tenderness PSYCHIATRIC: Appropriate mood and affect; insight and judgment normal. Results - Labs CBC & Chem 7: 08/01/18 06:02 08/01/18 06:02 Laboratory Results - last 24 hr 08/01/18 08/01/18 06:02 06:02 WBC 5.3 RBC 3.79 L Hgb 12.7 L Hct 37.7 L MCV 99.4 MCH 33.5 MCHC 33.7 RDW 14.2 Plt Count 140 L MPV 7.1 Neut % (Auto) 63.2 Lymph % (Auto) 16.9 [place] % (Auto) 14.9 H Eos % (Auto) 4.8 H Baso % (Auto) 0.2 Neut # (Auto) 3.3 Lymph # (Auto) 0.9 L [place] # (Auto) 0.8 Eos # (Auto) 0.3 Baso # (Auto) 0.0 WBC Differential . Differential Comment Auto diff final Sodium 136 Potassium 4.0 D Chloride 104 Carbon Dioxide 27.3 Anion Gap 5 BUN 16 Creatinine 1.24 Estimated GFR 56 L Random Glucose 98 Calcium 8.5 Phosphorus 3.7 Magnesium 2.1 Total Bilirubin 0.4 AST 19 ALT 19 Alkaline Phosphatase 64 Total Protein 6.9 Albumin 3.2 L Triglycerides 140 Cholesterol 140 LDL Cholesterol, Calc 61 HDL Cholesterol 51.5 Cholesterol/HDL Ratio 2.71 TSH 2.100 Free T4 0.96 - Imaging ITS Impressions Chest X-Ray 07/30/18 21:02 CONCLUSION: 1. Minimal airspace disease at the left lung base, presumably atelectasis. Cannot exclude developing pneumonia in the appropriate clinical setting. Assessment and Plan - Plan Closed fracture of left lower leg comminuted periprosthetic fracture involving the mid and distal left tibial diaphysis and incomplete distal diaphysis of left fibula fracture -Nonsurgical at this time per orthopedics -May need surgery in the future -Continue on splint and pain control -Has been seen by orthopedic surgery no surgery at this time will need SNF Atrial fibrillation continue on Eliquis continue on metoprolol Hypertension resume home medications continue on metoprolol Hyperlipidemia continue on statin continue on atorvastatin Chronic neuropathy continue on home medications continue on Topamax Depression anxiety continue on fluoxetine and bupropion History of bilateral knee infections removal of the bilateral total knees and antibiotic spacer placement and then reimplantation of bilateral total knees GI prophylaxis continue on ranitidine DVT prophylaxis continue on Eliquis Will need SNF placement after his 3 midnights and pain control Code Status: FULL CODE Discussed Condition With: RN AND PT Discharge Planning: Pending SNF placement and pain control since no surgery at this time and surgery in the future
[2018-08-01 12:41] LABS: Hemoglobin A1c 5.1 % (4.3-6.0)
[2018-08-01] MEDS: Topiramate 100 MG Tablet PO SCH (21:32)
[2018-08-02] MEDS: Docusate Sodium 100 MG Capsule PO PRN (07:45)
[2018-08-02] MEDS: Famotidine 20 MG Tablet PO SCH ×3 (07:46→20:45)
[2018-08-02] MEDS: Senna/Docusate Sodium 8.6/50 MG Tablet PO PRN (07:46)
[2018-08-02] MEDS: FLUoxetine 20 MG Capsule PO SCH ×2 (07:47→10:05)
[2018-08-02] MEDS: buPROPion 150 MG 12 HR Tablet PO SCH ×3 (07:47→20:45)
[2018-08-02] MEDS: Tolterodine Tartrate LA 4 MG Capsule PO SCH ×2 (07:47→10:05)
--- NOTE | 2018-08-02 11:02 | P.PNIM ---
Subjective Interval history: In bed appears in not acute distress watching TV. Awaiting for [facility]dc facility approval. Says pain is controlled by medications. No chest pain or palpitations. No nausea or vomiting. No diarrhea. With constipation. Physical Exam Vital signs: Last Vital Signs Temp 97.7 F 08/02/18 08:00 Pulse 69 08/02/18 08:00 Resp 18 08/02/18 08:00 BP 143/68 H 08/02/18 08:00 Pulse Ox 96 08/02/18 08:00 Intake & Output 07/31/18 08/01/18 08/02/18 08/03/18 06:59 06:59 06:59 06:59 Intake Total 0 / 0 1500 / 1500 Output Total 250 / 250 1125 / 1125 1525 / 1525 Balance -250 / -250 -1125 / -1125 -25 / -25 Weight 119.8 kg Narrative: GENERAL: Awake alert and oriented x3 talkative and cooperative. CARDIOVASCULAR: Irregular rate and rhythm. S1-S2 no S3 or S4 RESPIRATORY: No accessory muscle use. Clear to auscultation. Breath sounds equal bilaterally. GASTROINTESTINAL: Abdomen soft, non-tender, nondistended. Hepatic and splenic margins not palpable. MUSCULOSKELETAL: Extremities without clubbing, cyanosis, or edema. No obvious deformities. Left lower extremity is in splint NEUROLOGICAL: Awake and alert. No obvious cranial nerve deficits. Motor grossly within normal limits. Normal speech. Left lower extremity is in splint with the swelling and some tenderness Results Labs CBC & Chem 7: 08/01/18 06:02 08/01/18 06:02 Assessment and Plan Plan Closed fracture of left lower leg comminuted periprosthetic fracture involving the mid and distal left tibial diaphysis and incomplete distal diaphysis of left fibula fracture -Nonsurgical at this time per orthopedics -May need surgery in the future -Continue on splint and pain control -Has been seen by orthopedic surgery no surgery at this time will need SNF Atrial fibrillation continue on Eliquis continue on metoprolol Hypertension resume home medications continue on metoprolol Hyperlipidemia continue on statin continue on atorvastatin Chronic neuropathy continue on home medications continue on Topamax Depression anxiety continue on fluoxetine and bupropion History of bilateral knee infections removal of the bilateral total knees and antibiotic spacer placement and then reimplantation of bilateral total knees GI prophylaxis continue on ranitidine DVT prophylaxis continue on Eliquis Will need SNF placement after his 3 midnights and pain control Constipation. Bowel regimen Code Status: FULL CODE Discussed Condition With: RN AND PT Discharge Planning: Pending SNF placement and pain control since no surgery at this time and surgery in the future Progress Note: Quality VTE Deep Vein Thrombosis/Pulmonary Embolism Present on Admission: No
[2018-08-02] MEDS ORDERED: Sod Phosphate/Sod Biphosphate (Adult) Enema 133 ML Bottle RECTAL PRN (17:29)
--- NOTE | 2018-08-02 17:29 | P.DS ---
DS: Providers Date of admission: 07/30/18 21:52 Primary care physician: Jina Sandy MD Consults: 07/31/18 06:54 Consult to Orthopedic Surgery Routine Consulting Provider: Vish Abrams Reason for Consultation: Tib fib fracture Notified:: Service Spoke with:: Lorene Date Notified:: 07/31/18 Time Notified:: 07:28 Ordering Provider: LULY 07/31/18 06:55 Consult to Orthopedic Surgery Routine Consulting Provider: Vish Abrams Reason for Consultation: left tib fib fx - Dr Abrams - transfer accepted by him Spoke with:: duplicate, added to list already Date Notified:: 07/31/18 Time Notified:: 07:32 Ordering Provider: PHIL Brief History from admission: Patient is an 82-year-old gentleman with a history of atrial fibrillation on chronic Eliquis, hypertension, hyperlipidemia, who was transferred here from [facility] for evaluation of left leg injury. The patient reported that he fell yesterday at the [place] airport and injured his left leg. He then flew back to [place]. He was seen at [facility] yesterday where x-rays of the left leg were obtained revealing comminuted periprostatic fracture involving the mid and distal left tibial diaphysis and incomplete distal diaphysis of left fibula fracture. Patient was also noted to have an acute minimally displaced fracture at the medial aspect of the base of the fourth proximal phalanx and intra-articular involvement. Patient was placed in a long-leg splint and transferred here. For orthopedic evaluation. Patient has been seen by orthopedic surgery. Who wants the patient to go to SNF and wait for swelling to come down. Patient therefore will be admitted will stay here is needed to 3 midnights and continue pain control with limited mobility and then will be reevaluated by orthopedic surgery next week for possible surgery in the future of the left lower extremity Of note patient has had history with bilateral total knee replacements needing them both removed and then antibiotic spacers and then bilateral total knees redone. Patient will be admitted for pain control and to work with physical therapy and occupational therapy and then will need to go to SNF if surgery is not indicated at this time yet Family history significant for mother with congestive heart failure at 84 and father with lung cancer at age 78 DS: Summary Closed fracture of left lower leg comminuted periprosthetic fracture involving the mid and distal left tibial diaphysis and incomplete distal diaphysis of left fibula fracture -Nonsurgical at this time per orthopedics -May need surgery in the future -Continue on splint and pain control -Has been seen by orthopedic surgery no surgery at this time will need SNF Atrial fibrillation continue on Eliquis continue on metoprolol Hypertension resume home medications continue on metoprolol Hyperlipidemia continue on statin continue on atorvastatin Chronic neuropathy continue on home medications continue on Topamax Depression anxiety continue on fluoxetine and bupropion History of bilateral knee infections removal of the bilateral total knees and antibiotic spacer placement and then reimplantation of bilateral total knees GI prophylaxis continue on ranitidine DVT prophylaxis continue on Eliquis Will need SNF placement after his 3 midnights and pain control Constipation. Bowel regimen Code Status: FULL CODE Discussed Condition With: RN AND PT Discharge Planning: DC to rehab in stable condition, no surgery at this time and surgery in the future. Patient to follow up as OP with PCP and consultants as OP Time Spent with Patient Total time spent providing and/or coordinating discharge services: >30 min Quality: VTE Deep Vein Thrombosis/Pulmonary Embolism Present on Admission: No Exam Narrative Exam Narrative: GENERAL: Awake alert and oriented x3 talkative and cooperative. CARDIOVASCULAR: Irregular rate and rhythm. S1-S2 no S3 or S4 RESPIRATORY: No accessory muscle use. Clear to auscultation. Breath sounds equal bilaterally. GASTROINTESTINAL: Abdomen soft, non-tender, nondistended. Hepatic and splenic margins not palpable. MUSCULOSKELETAL: Extremities without clubbing, cyanosis, or edema. No obvious deformities. Left lower extremity is in splint NEUROLOGICAL: Awake and alert. No obvious cranial nerve deficits. Motor grossly within normal limits. Normal speech. Left lower extremity is in splint with the swelling and some tenderness Results Impressions ITS Impressions Chest X-Ray 07/30/18 21:02 CONCLUSION: 1. Minimal airspace disease at the left lung base, presumably atelectasis. Cannot exclude developing pneumonia in the appropriate clinical setting. Discharge Plan Discharge Disposition Patient Disposition: 62 Rehab Inpatient Discharge Condition Condition: Stable Discharge Order Discharge Orders: Discharge Order (Routine); Ordered 08/02/18 Ordered By: Lana Kent Orthopedic Clear for Discharge (Routine); Ordered 07/31/18 Ordered By: Torres Muller Discharge Details Anticipated Discharge Date: 08/02/18 Discharge Comment: DC when arrangements are done Physicians Team Primary Care Provider: Jina Sandy Attending Provider: Lana Kent Other Providers: Vish Abrams Rxs /Orders / Referrals /Forms Prescriptions: New hydrocodone-acetaminophen [[place]] 7.5-325 mg Tablet 1 tab PO Q4H Qty: 40 RF: 0 Continue fluoxetine 40 mg Capsule 40 mg PO DAILY RF: 0 atorvastatin 10 mg Tablet 10 mg PO DAILY RF: 0 ranitidine HCl [Zantac Maximum Strength] 150 mg Tablet 150 mg PO DAILY RF: 0 topiramate 100 mg Tablet 100 mg PO HS RF: 0 bupropion HCl 300 mg Tablet Extended Release 24 Hr 300 mg PO QAM RF: 0 mirabegron [Myrbetriq] 50 mg Tablet Extended Release 24 Hr 50 mg PO DAILY RF: 0 apixaban [Eliquis] 5 mg Tablet 2.5 mg PO BID RF: 0 metoprolol succinate 50 mg Cap,Sprinkle,Er 24hr Dose Pack 50 mg PO DAILY RF: 0 Ambulatory Orders / Order Sets / DME: Adjustable Commode 3-in-1 (1 each) (Routine) Location: Determined by Patient Ordered By: Torres Muller Walker Folding (Routine) Location: Determined by Patient Ordered By: Torres Muller Wheelchair (1 each) (Routine) Location: Determined by Patient Ordered By: Torres Muller Referrals: Jina Sandy MD [Primary Care Provider] - See Instructions ( Please call the physician's office to book the appointment to be seen within [2- 3 years].) Vish Abrams MD [Physician] - 08/06/18 ( Please call the physician's office to book the appointment to be seen within 1 week.) Status ED Status: Left Department
[2018-08-02] MEDS: Topiramate 100 MG Tablet PO SCH (20:45)
--- NOTE | 2018-08-03 07:09 | P.PNOP ---
Subjective Interval history: Pain controlled. Has difficulty ambulating due to multiple surgeries to right lower extremity. Physical Exam Vital signs: Vital Signs 08/02/18 08:00 08/02/18 12:00 08/02/18 16:00 Temperature 97.7 F 98 F 98.2 F Pulse Rate 69 67 64 Respiratory Rate 18 18 18 Blood Pressure 143/68 H 129/60 140/73 Pulse Oximetry 96 96 94 L 08/02/18 18:31 08/02/18 19:25 08/02/18 20:00 Temperature 98.6 F Pulse Rate 67 69 71 Respiratory Rate 18 Blood Pressure 133/70 Pulse Oximetry 95 08/02/18 23:50 08/03/18 03:30 Temperature 98.6 F 98.8 F Pulse Rate 71 70 Respiratory Rate 18 18 Blood Pressure 144/79 H 124/68 Pulse Oximetry 95 95 Intake & Output 08/02/18 08/03/18 08/03/18 18:59 06:59 18:59 Intake Total 1560 / 1560 420 / 420 Output Total 1650 / 1650 Balance 1560 / 1560 -1230 / -1230 Weight 120.3 kg Intake: Oral 1560 / 1560 420 / 420 Output: Urine 1650 / 1650 Other: # Voids 2 Date of Last Bowel Movement 08/02/17 08/02/17 # Bowel Movements 1 0 Narrative: Left lower extremity: Splint is intact. Intact sensation in all toes with active movement of toes. No pain with hip range of motion Results - Labs CBC & Chem 7: 08/01/18 06:02 08/01/18 06:02 Assessment and Plan - Assessment and Plan Non op treatment of left tibial shaft, comminuted fracture inferior to revision total knee components. Dr Abrams SCDs, Stanton Acosta Strict nonweightbearing, elevate left foot X-rays today to evaluate alignment follow-up with Dr. Abrams in 1 weeks Case management for Rehab vs SNF Clear for discharge from an orthopedic standpoint and on x-ray alignment
[2018-08-03] MEDS: buPROPion 150 MG 12 HR Tablet PO SCH ×2 (08:36→21:13)
[2018-08-03] MEDS: Tolterodine Tartrate LA 4 MG Capsule PO SCH (08:37)
[2018-08-03] MEDS: FLUoxetine 20 MG Capsule PO SCH (08:37)
[2018-08-03] MEDS: Famotidine 20 MG Tablet PO SCH ×2 (08:38→21:13)
--- NOTE | 2018-08-03 15:21 | XR ---
EXAM DATE: 08/03/2018 3:12 PM EST AGE/SEX: 82 years / Male INDICATIONS: Fracture. Patient states no pain in left leg. CLINICAL DATA: This is the patient's subsequent encounter. Patient reports that signs and symptoms h ave been present for 4 - 6 days and indicates a pain score of 0/10. MEDICAL/SURGICAL HISTORY: . Hypertension. Atrial fibrillation. . Appendectomy. Total knee rep lacement, left. Total knee replacement, right. Left foot surgery. COMPARISON: . FINDINGS: Total knee arthroplasty. Old fracture deformity with callus formation in the proximal fibular diaphys is. Comminuted, minimally displaced spiral type fracture through the distal tibial diaphysis, just in ferior to the medullary arjun of the tibial component of the total arthroplasty. CONCLUSION: 1. Comminuted, minimally displaced spiral type fracture through the distal tibial diaphysis, just in ferior to the tip of the medullary arjun from the tibial component of the total knee arthroplasty. 2. Old fracture deformity with extensive callus formation in the proximal fibular diaphysis. Electronically signed by: Omer Marcos MD Board Certified Radiologist 08/03/2018 3:20 PM EST
--- NOTE | 2018-08-03 15:33 | P.PNIM ---
Subjective Interval history: Pain is fairly controlled by medications. No chest pain or palpitations. Still with constipation. No abdominal pain. Awaiting for long-term facility Physical Exam Vital signs: Last Vital Signs Temp 98.3 F 08/03/18 12:00 Pulse 67 08/03/18 12:00 Resp 19 08/03/18 12:00 BP 127/61 08/03/18 12:00 Pulse Ox 95 08/03/18 12:00 Intake & Output 08/01/18 08/02/18 08/03/18 08/04/18 06:59 06:59 06:59 06:59 Intake Total 1500 / 1500 1979 Output Total 1125 / 1125 1525 / 1525 1650 / 1650 Balance -1125 / -1125 -25 / -25 330 / 330 Weight 120.3 kg 120.3 kg Narrative: GENERAL: Awake alert and oriented x3 talkative and cooperative. CARDIOVASCULAR: Irregular rate and rhythm. S1-S2 no S3 or S4 RESPIRATORY: No accessory muscle use. Clear to auscultation. Breath sounds equal bilaterally. GASTROINTESTINAL: Abdomen soft, non-tender, nondistended. Hepatic and splenic margins not palpable. MUSCULOSKELETAL: Extremities without clubbing, cyanosis, or edema. No obvious deformities. Left lower extremity is in splint NEUROLOGICAL: Awake and alert. No obvious cranial nerve deficits. Motor grossly within normal limits. Normal speech. Left lower extremity is in splint with the swelling and some tenderness Results Labs CBC & Chem 7: 08/01/18 06:02 08/01/18 06:02 Imaging Imaging: Impressions Tibia/Fibula X-Ray 08/03/18 00:00 CONCLUSION: 1. Comminuted, minimally displaced spiral type fracture through the distal tibial diaphysis, just inferior to the tip of the medullary arjun from the tibial component of the total knee arthroplasty. 2. Old fracture deformity with extensive callus formation in the proximal fibular diaphysis. Assessment and Plan Plan Closed fracture of left lower leg comminuted periprosthetic fracture involving the mid and distal left tibial diaphysis and incomplete distal diaphysis of left fibula fracture -Nonsurgical at this time per orthopedics -May need surgery in the future -Continue on splint and pain control -Has been seen by orthopedic surgery no surgery at this time will need SNF Atrial fibrillation continue on Eliquis continue on metoprolol Hypertension resume home medications continue on metoprolol Hyperlipidemia continue on statin continue on atorvastatin Chronic neuropathy continue on home medications continue on Topamax Depression anxiety continue on fluoxetine and bupropion History of bilateral knee infections removal of the bilateral total knees and antibiotic spacer placement and then reimplantation of bilateral total knees GI prophylaxis continue on ranitidine DVT prophylaxis continue on Eliquis Will need SNF placement after his 3 midnights and pain control Constipation. Bowel regimen Code Status: FULL CODE Discussed Condition With: RN AND PT Discharge Planning: Pending SNF placement and pain control since no surgery at this time and surgery in the future Progress Note: Quality VTE Deep Vein Thrombosis/Pulmonary Embolism Present on Admission: No
[2018-08-03] MEDS: Topiramate 100 MG Tablet PO SCH (21:13)
[2018-08-04] MEDS: Tolterodine Tartrate LA 4 MG Capsule PO SCH (08:42)
[2018-08-04] MEDS: buPROPion 150 MG 12 HR Tablet PO SCH (08:42)
[2018-08-04] MEDS: Famotidine 20 MG Tablet PO SCH (08:42)
[2018-08-04] MEDS: FLUoxetine 20 MG Capsule PO SCH (08:42)
--- NOTE | 2018-08-04 08:58 | P.DS ---
DS: Providers Date of admission: 07/30/18 21:52 Primary care physician: Jina Sandy MD Consults: 07/31/18 06:54 Consult to Orthopedic Surgery Routine Consulting Provider: Vish Abrams Reason for Consultation: Tib fib fracture Notified:: Service Spoke with:: Lorene Date Notified:: 07/31/18 Time Notified:: 07:28 Ordering Provider: LULY 07/31/18 06:55 Consult to Orthopedic Surgery Routine Consulting Provider: Vish Abrams Reason for Consultation: left tib fib fx - Dr Abrams - transfer accepted by him Spoke with:: duplicate, added to list already Date Notified:: 07/31/18 Time Notified:: 07:32 Ordering Provider: PHIL 08/03/18 13:52 HUB Only Consult Order Routine Consulting Provider: Bernadette Villalobos Anticipated date of discharge: 08/04/18 Brief History from admission: Patient is an 82-year-old gentleman with a history of atrial fibrillation on chronic Eliquis, hypertension, hyperlipidemia, who was transferred here from [facility] for evaluation of left leg injury. The patient reported that he fell yesterday at the [place] airport and injured his left leg. He then flew back to [place]. He was seen at [facility] yesterday where x-rays of the left leg were obtained revealing comminuted periprostatic fracture involving the mid and distal left tibial diaphysis and incomplete distal diaphysis of left fibula fracture. Patient was also noted to have an acute minimally displaced fracture at the medial aspect of the base of the fourth proximal phalanx and intra-articular involvement. Patient was placed in a long-leg splint and transferred here. For orthopedic evaluation. Patient has been seen by orthopedic surgery. Who wants the patient to go to SNF and wait for swelling to come down. Patient therefore will be admitted will stay here is needed to 3 midnights and continue pain control with limited mobility and then will be reevaluated by orthopedic surgery next week for possible surgery in the future of the left lower extremity Of note patient has had history with bilateral total knee replacements needing them both removed and then antibiotic spacers and then bilateral total knees redone. Patient will be admitted for pain control and to work with physical therapy and occupational therapy and then will need to go to SNF if surgery is not indicated at this time yet Family history significant for mother with congestive heart failure at 84 and father with lung cancer at age 78 Patient update on day of discharge: Patient seen and examined laying in bed, family at bedside. Patient stated does not have any pain if he is not moving. While laying in bed he states that he has a pain of 2 out of 10 which he do not need pain medication at the moment. However once he move around he said pain is 10 out of 10. Patient encouraged to take pain medication before therapy/ rehab or activity. Discussed discharge planning to correction facility today. Nurse in room discussed pain management and discharge planning. Patient denies any headache or dizziness, denies any chest pain or shortness of breath, denies any abdominal pain, nausea, vomiting, diarrhea or constipation. Patient stated he had a problem with bowels however after the laxative bowels are moving around and now have loose stools. Patient denies any fever or chills DS: Summary This is an 82 years old male with history of A. fib on chronic Eliquis, hypertension, hyperlipidemia who was transferred from [facility] for evaluation of left leg injury. Patient was admitted for a closed fracture of the left lower leg after a fall. Closed fracture of left lower leg, comminuted periprosthetic fracture involving the mid and distal left tibial diaphysis and incomplete distal diaphysis of left fibula fracture, Nonsurgical at this time per orthopedics, however May need surgery in the future. At this time will Continue on splint and pain control. orthopedic surgery has been consulted and recommended no surgery at this time, will need SNF placement for rehab. Patient also had past medical history of atrial fibrillation continue on Eliquis continue on metoprolol. Hypertension, resume home medications continue on metoprolol. Hyperlipidemia, continue on statin continue on atorvastatin. Chronic neuropathy, continue on home medications continue on Topamax. Depression anxiety continue on fluoxetine and bupropion. Patient also had history of bilateral knee infections removal of the bilateral total knees and antibiotic spacer placement and then reimplantation of bilateral total knees. We will continue Eliquis for DVT prophylaxis and continue ranitidine for GI prophylaxis Patient will be discharged to correction facility for continued rehabilitation for gait training and strengthening. Time Spent with Patient Total time spent providing and/or coordinating discharge services: Quality: VTE Deep Vein Thrombosis/Pulmonary Embolism Present on Admission: No Exam Narrative Exam Narrative: GENERAL: Well-developed, well-nourished, male in no apparent distress SKIN: Warm and dry. HEAD: Atraumatic. Normocephalic. EYES: Pupils equal and round. No scleral icterus. No injection or drainage. ENT: No nasal bleeding or discharge. Mucous membranes pink and moist. NECK: Trachea midline. No JVD. CARDIOVASCULAR: Regular rate and rhythm. RESPIRATORY: No accessory muscle use. Clear to auscultation. Breath sounds equal bilaterally. GASTROINTESTINAL: Abdomen soft, non-tender, nondistended. Hepatic and splenic margins not palpable. MUSCULOSKELETAL: Extremities without clubbing, cyanosis, or edema. Left lower extremity with splint and soft cast. Sensation intact with some neuropathy, toes with positive range of motion. NEUROLOGICAL: Awake and alert. No obvious cranial nerve deficits. Motor grossly within normal limits. Five out of 5 muscle strength in the arms and legs except left lower extremity with limited range of motion. Normal speech. PSYCHIATRIC: Appropriate mood and affect; insight and judgment normal. Results Impressions ITS Impressions Chest X-Ray 07/30/18 21:02 CONCLUSION: 1. Minimal airspace disease at the left lung base, presumably atelectasis. Cannot exclude developing pneumonia in the appropriate clinical setting. Tibia/Fibula X-Ray 08/03/18 00:00 CONCLUSION: 1. Comminuted, minimally displaced spiral type fracture through the distal tibial diaphysis, just inferior to the tip of the medullary arjun from the tibial component of the total knee arthroplasty. 2. Old fracture deformity with extensive callus formation in the proximal fibular diaphysis. Discharge Plan Discharge Disposition Patient Disposition: Discharge to SNF Discharge Condition Condition: Stable Discharge Order Discharge Orders: Discharge Order (Routine); Ordered 08/02/18 Ordered By: Lana Kent Orthopedic Clear for Discharge (Routine); Ordered 07/31/18 Ordered By: Torres Muller Discharge Details Anticipated Discharge Date: 08/04/18 Discharge Comment: DC when arrangements are done Physicians Team ED Provider: Rita Kennedy ED Midlevel Provider: Robinson Marcum Primary Care Provider: Jina Sandy Attending Provider: Leonor Mello Other Providers: Vish Abrams ; [facility] Rxs /Orders / Referrals /Forms Prescriptions: New hydrocodone-acetaminophen [[place]] 7.5-325 mg tablet 1 tab PO Q4H PRN (Reason: pain) 3 Days Qty: 14 RF: 0 Continue fluoxetine 40 mg Capsule 40 mg PO DAILY RF: 0 atorvastatin 10 mg Tablet 10 mg PO DAILY RF: 0 ranitidine HCl [Zantac Maximum Strength] 150 mg Tablet 150 mg PO DAILY RF: 0 topiramate 100 mg Tablet 100 mg PO HS RF: 0 bupropion HCl 300 mg Tablet Extended Release 24 Hr 300 mg PO QAM RF: 0 mirabegron [Myrbetriq] 50 mg Tablet Extended Release 24 Hr 50 mg PO DAILY RF: 0 apixaban [Eliquis] 5 mg Tablet 2.5 mg PO BID RF: 0 metoprolol succinate 50 mg Cap,Sprinkle,Er 24hr Dose Pack 50 mg PO DAILY RF: 0 Ambulatory Orders / Order Sets / DME: Adjustable Commode 3-in-1 (1 each) (Routine) Location: Determined by Patient Ordered By: Torres Muller Walker Folding (Routine) Location: Determined by Patient Ordered By: Torres Muller Wheelchair (1 each) (Routine) Location: Determined by Patient Ordered By: Torres Muller Referrals: Jina Sandy MD [Primary Care Provider] - See Instructions ( Please call the physician's office to book the appointment to be seen within [2- 3 years].) Vish Abrams MD [Physician] - 08/06/18 ( Please call the physician's office to book the appointment to be seen within 1 week.) Discharge Instructions Patient Printed Instructions: Hydrocodone/Acetaminophen (By mouth), Laxative, Stool Softeners (By mouth), Leg Fracture (DC), How to Choose and Use a Walker ( GEN), Splint Care (GEN), Ice Pack Application (DC) Additional Instructions: FILL AND TAKE MEDICATIONS PRESCRIBED. FOLLOW UP DIRECTED. IN CASE OF EMERGENCY CALL 911 OR RETURN TO [facility]. Post Discharge Care Plan Care Plan Goals: Your Health Problems: Goals to Promote Your Health: * To prevent worsening of your condition * To maintain your health at the optimal level Directions to Meet Your Goals: * Take your medications as prescribed * Follow your dietary instruction * Follow activity as directed * Keep your appointments as scheduled * Take your immunizations and boosters as scheduled * If your symptoms worsen call your PCP * If no PCP go to Urgent Care or Emergency Room Smoking is dangerous to your health. Avoid second hand smoke. You may reach the 24-hour crisis hotline for domestic abuse at . Status ED Status: Left Department
[2018-08-04 09:35] VITALS: BP 152/70; PULSE 70; RESP 16; TEMP 98.2; O2SAT 96
== END 2018-08-04 11:38 | DRG 563 ==
LOC: NEPE 20:29 → NEDA 21:52 → NEDH 07-31 01:58 → H7ONC 07-31 02:55 → N06 07-31 14:37
PROVIDERS: ADMIT Internal Medicine; ATTEND Internal Medicine
CPT/HCPCS: J1170